=== PATIENT | male | born 1985 | race American Indian/Alaskan Native ===

== ENCOUNTER 2017-01-14 12:43 | Emergency (ER) | payer MEDICAID ==
[2017-01-14 14:39] LABS: Alanine Aminotransferase 32 units/L (7-56); Albumin 3.4 g/dL (3.9-5); Alkaline Phosphatase 110 units/L (35-129); Anion Gap 18 mmol/L; BUN/Creatinine Ratio 16; Blood Urea Nitrogen 13 mg/dL (9-20); Calcium 8.3 mg/dL (8.4-10.2); Carbon Dioxide 22 mmol/L (22-30); Chloride 109.1 mmol/L (98-107); Glucose 93 mg/dL (75-100); Lipase 100 units/L (13-60); Potassium 3.6 mmol/L (3.6-5.0); Sodium 145 mmol/L (137-145); Total Protein 6.9 g/dL (6.3-8.2)
[2017-01-14 15:09] LABS: Hemoglobin 8.1 gm/dl (11.8-15.2); Mean Corpuscular HGB Conc 33 % (32-34); Mean Corpuscular Hemoglobin 28 pg (28-32); Mean Corpuscular Volume 86 fl (84-94); Red Blood Count 2.91 M/mm3 (3.65-5.03); White Blood Count 3.9 K/mm3 (4.5-11.0)
[2017-01-14 15:10] LABS: Platelet Count 223 K/mm3 (140-440)
[2017-01-14 15:30] LABS: Bacteria,Urine 1+ /HPF (Negative); Bilirubin,Urine NEG (Negative); Blood,Urine NEG (Negative); Ketones,Urine NEG (Negative); Leukocyte Esterase,Urine NEG (Negative); Mucus,Urine FEW /HPF; Nitrite,Urine NEG (Negative); Protein,Urine <15 mg/dL mg/dL (Negative)
[2017-01-14 17:46] LABS: Blastocytes % (Manual) 0 %; Eosinophils % (Manual) 0 % (0.0-4.3)
[2017-01-14 17:47] LABS: Anisocytosis 1+; Diff Status Complete; Platelet Estimate Consistent w Auto
[2017-01-14 21:39] VITALS: BP 121/83
--- NOTE | 2017-01-14 21:39 | Emergency Department Report ---
ED General Adult HPI - General Chief complaint: Weakness Stated complaint: HEMOGLOBIN LOW, ABNORMAL LABS Time Seen by Provider: 01/14/17 21:25 Source: patient Mode of arrival: Ambulatory Limitations: No Limitations - History of Present Illness Initial comments: She has a 31-year-old male past medical history of HIV who presents with weakness and low hemoglobin. Patient was recently admitted to the hospital for altered mental status and treat for cryptococcal meningitis. He was discharged from the hospital and was told to follow up with an infectious disease doctor. Patient recently got his labs done today at an outpatient facility. They noted that he had a hemoglobin of 8.1 and told him to go to the emergency department for evaluation. Patient just states that he has felt weak and fatigued. This is the same the weakness he is felt since he left the hospital. He denies having any new symptoms such as headache neck pain fever or chills or any diarrhea. Patient is alert and oriented 4. He states that he is hungry and he wants to eat. Patient states that he is having some slight abdominal pain as generalized as 3 out of 10 as an achy type pain and its intermittent nothing makes it better or worse. Severity scale (0 -10): 0 - Related Data Previous Rx's Medication Instructions Recorded Last Taken Type Famotidine [Pepcid] 20 mg PO BID #60 tablet 12/25/16 Unknown Rx Fluconazole [Diflucan TAB] 400 mg PO QDAY 60 Days tablet 12/25/16 Unknown Rx Lactobacillus Rhamnosus GG 1 each PO QDAY #14 cap 12/25/16 Unknown Rx [Culturelle] Promethazine [Phenergan TAB] 25 mg PO Q6HR PRN #30 tab 12/25/16 Unknown Rx diphenhydrAMINE [Benadryl CAP] 25 mg PO Q6H PRN #30 capsule 12/25/16 Unknown Rx Allergies Allergy/AdvReac Type Severity Reaction Status Date / Time No Known Allergies Allergy Unverified 12/12/16 10:09 ED Review of Systems ROS: Stated complaint: HEMOGLOBIN LOW, ABNORMAL LABS Other details as noted in HPI Constitutional: weakness Eyes: denies: eye pain, eye discharge, vision change ENT: denies: ear pain, throat pain Respiratory: denies: cough, shortness of breath, wheezing Cardiovascular: denies: chest pain, palpitations Endocrine: no symptoms reported Gastrointestinal: abdominal pain. denies: nausea, diarrhea Genitourinary: denies: urgency, dysuria Musculoskeletal: denies: back pain, joint swelling, arthralgia Skin: denies: rash, lesions Neurological: denies: headache, weakness, paresthesias Psychiatric: denies: anxiety, depression Hematological/Lymphatic: denies: easy bleeding, easy bruising ED Past Medical Hx - Past Medical History Previous Medical History?: Yes Hx HIV: Yes (dx with Aids 12/2016) - Surgical History Past Surgical History?: No - Social History Smoking Status: Never Smoker - Medications Home Medications: Home Medications Medication Instructions Recorded Confirmed Last Taken Type Famotidine [Pepcid] 20 mg PO BID #60 tablet 12/25/16 01/14/17 Unknown Rx Fluconazole [Diflucan TAB] 400 mg PO QDAY 60 Days tablet 12/25/16 01/14/17 Unknown Rx Lactobacillus Rhamnosus GG 1 each PO QDAY #14 cap 12/25/16 01/14/17 Unknown Rx [Culturelle] Promethazine [Phenergan TAB] 25 mg PO Q6HR PRN #30 tab 12/25/16 01/14/17 Unknown Rx diphenhydrAMINE [Benadryl CAP] 25 mg PO Q6H PRN #30 capsule 12/25/16 01/14/17 Unknown Rx ED Physical Exam - General Limitations: No Limitations General appearance: alert, in no apparent distress - Head Head exam: Present: atraumatic, normocephalic - Eye Eye exam: Present: normal appearance - ENT ENT exam: Present: mucous membranes moist - Neck Neck exam: Present: normal inspection - Respiratory Respiratory exam: Present: normal lung sounds bilaterally. Absent: respiratory distress - Cardiovascular Cardiovascular Exam: Present: regular rate, normal rhythm. Absent: systolic murmur, diastolic murmur, rubs, gallop - GI/Abdominal GI/Abdominal exam: Present: soft, normal bowel sounds - Rectal Rectal exam: Present: deferred - Extremities Exam Extremities exam: Present: normal inspection - Back Exam Back exam: Present: normal inspection - Neurological Exam Neurological exam: Present: alert, oriented X3 - Psychiatric Psychiatric exam: Present: normal affect, normal mood - Skin Skin exam: Present: warm, dry, intact, normal color. Absent: rash ED Course Vital Signs 01/14/17 01/14/17 13:47 21:38 Temperature 98.7 F 97.6 F Pulse Rate 104 H 89 Respiratory 18 18 Rate Blood Pressure 109/80 Blood Pressure 121/83 [Right] O2 Sat by Pulse 100 98 Oximetry ED Medical Decision Making - Lab Data Result diagrams: 01/14/17 14:06 01/14/17 14:06 Lab Results 01/14/17 01/14/17 01/14/17 Range/Units 14:06 14:06 14:47 WBC 3.9 L (4.5-11.0) K/mm3 RBC 2.91 L (3.65-5.03) M/mm3 Hgb 8.1 L (11.8-15.2) gm/dl Hct 25.0 L (35.5-45.6) % MCV 86 (84-94) fl MCH 28 (28-32) pg MCHC 33 (32-34) % RDW 21.0 H (13.2-15.2) % Plt Count 223 (140-440) K/mm3 Add Manual Diff Complete Total Counted 100 Seg Neuts % (Manual) 67.0 (40.0-70.0) % Band Neutrophils % 0 % Lymphocytes % (Manual) 24.0 (13.4-35.0) % Reactive Lymphs % (Man) 0 % Monocytes % (Manual) 8.0 H (0.0-7.3) % Eosinophils % (Manual) 0 (0.0-4.3) % Basophils % (Manual) 1.0 (0.0-1.8) % Metamyelocytes % 0 % Myelocytes % 0 % Promyelocytes % 0 % Blast Cells % 0 % Nucleated RBC % Not Reportable Seg Neutrophils # Man 2.6 (1.8-7.7) K/mm3 Band Neutrophils # 0.0 K/mm3 Lymphocytes # (Manual) 0.9 L (1.2-5.4) K/mm3 Abs React Lymphs (Man) 0.0 K/mm3 Monocytes # (Manual) 0.3 (0.0-0.8) K/mm3 Eosinophils # (Manual) 0.0 (0.0-0.4) K/mm3 Basophils # (Manual) 0.0 (0.0-0.1) K/mm3 Metamyelocytes # 0.0 K/mm3 Myelocytes # 0.0 K/mm3 Promyelocytes # 0.0 K/mm3 Blast Cells # 0.0 K/mm3 WBC Morphology Not Reportable Hypersegmented Neuts Not Reportable Hyposegmented Neuts Not Reportable Hypogranular Neuts Not Reportable Smudge Cells Not Reportable Toxic Granulation Not Reportable Toxic Vacuolation Not Reportable Dohle Bodies Not Reportable Pelger-Huet Anomaly Not Reportable Simon Rods Not Reportable Platelet Estimate Consistent w auto Clumped Platelets Not Reportable Plt Clumps, EDTA Not Reportable Large Platelets Not Reportable Giant Platelets Not Reportable Platelet Satelliting Not Reportable Plt Morphology Comment Not Reportable RBC Morphology Not Reportable Dimorphic RBCs Not Reportable Polychromasia Not Reportable Hypochromasia Not Reportable Poikilocytosis Not Reportable Anisocytosis 1+ Microcytosis Not Reportable Macrocytosis Not Reportable Spherocytes Not Reportable Pappenheimer Bodies Not Reportable Sickle Cells Not Reportable Target Cells Not Reportable Tear Drop Cells Not Reportable Ovalocytes Not Reportable Helmet Cells Not Reportable Hadley-Rillito Bodies Not Reportable Beecher Rings Not Reportable Marika Cells Not Reportable Bite Cells Not Reportable Crenated Cell Not Reportable Elliptocytes Not Reportable Acanthocytes (Spur) Not Reportable Rouleaux Not Reportable Hemoglobin C Crystals Not Reportable Schistocytes Not Reportable Malaria parasites Not Reportable Aakash Bodies Not Reportable Hem Pathologist Commnt No Sodium 145 (137-145) mmol/L Potassium 3.6 (3.6-5.0) mmol/L Chloride 109.1 H (98-107) mmol/L Carbon Dioxide 22 (22-30) mmol/L Anion Gap 18 mmol/L BUN 13 (9-20) mg/dL Creatinine 0.8 (0.8-1.5) mg/dL Estimated GFR > 60 ml/min BUN/Creatinine Ratio 16 % Glucose 93 (75-100) mg/dL Calcium 8.3 L (8.4-10.2) mg/dL Total Bilirubin 0.30 (0.1-1.2) mg/dL AST 28 (5-40) units/L ALT 32 (7-56) units/L Alkaline Phosphatase 110 (35-129) units/L Total Protein 6.9 (6.3-8.2) g/dL Albumin 3.4 L (3.9-5) g/dL Albumin/Globulin Ratio 1.0 % Lipase 100 H (13-60) units/L Urine Color Yellow (Yellow) Urine Turbidity Clear (Clear) Urine pH 6.0 (5.0-7.0) Ur Specific [place] 1.020 (1.003-1.030) Urine Protein <15 mg/dl (Negative) mg/dL Urine Glucose (UA) Neg (Negative) mg/dL Urine Ketones Neg (Negative) mg/dL Urine Blood Neg (Negative) Urine Nitrite Neg (Negative) Urine Bilirubin Neg (Negative) Urine Urobilinogen 4.0 (<2.0) mg/dL Ur Leukocyte Esterase Neg (Negative) Urine WBC (Auto) 1.0 (0.0-6.0) /HPF Urine RBC (Auto) 1.0 (0.0-6.0) /HPF U Epithel Cells (Auto) 1.0 (0-13.0) /HPF Urine Bacteria (Auto) 1+ (Negative) /HPF Urine Mucus Few /HPF - Medical Decision Making Chief Medical diagnosis: 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 He had anemia in his stay in the hospital for this ago. Patient' s anemia is most likely due to his HIV infection. Patient will need a follow- up with infectious disease doctor. Patient also had an elevated lipase. He has mild abdominal pain and is hungry. I will tell patient to follow up with his primary care doctor and to eat soft/liquid foods. Skull is final patient he agrees with plan additional verbal disccharge instructions were given. He will not need any iron pills as he doesn't have any microcytic anemia Critical care attestation.: If time is entered above; I have spent that time in minutes in the direct care of this critically ill patient, excluding procedure time. ED Disposition Clinical Impression: HIV (human immunodeficiency virus infection), Weakness Anemia Qualifiers: Anemia type: unspecified type Qualified Code(s): D64.9 - Anemia, unspecified Pancreatitis Qualifiers: Chronicity: acute Pancreatitis type: unspecified pancreatitis type Disposition: DC- TO HOME OR SELFCARE Is pt being admited?: No Does the pt Need Aspirin: No Condition: Stable Instructions: Anemia (ED), Pancreatitis (ED) Referrals: KEVIN ALFORD MD [Staff Physician] - 3-5 Days
== END 2017-01-14 23:20 | disposition home or self-care (01) ==
LOC: ED 12:43
DX: D64.9 Anemia, unspecified (principal); K85.90 Acute pancreatitis without necrosis or infection, unspecified; R53.1 Weakness; Z21 Asymptomatic human immunodeficiency virus [HIV] infection status
CPT/HCPCS: 36415; 80053; 81001; 83690; 85007; 85025; 99283

== ENCOUNTER 2017-01-19 13:58 | Inpatient (IN) | payer MEDICAID ==
[2017-01-19] MEDS ORDERED: TYLENOL ONE (16:05)
[2017-01-19] MEDS ORDERED: NACL 0.9% 500 ML 500 ML IV ONE (16:09)
[2017-01-19 16:41] LABS: Basophils % (Auto) 0.3 % (0.0-1.8); Eosinophils % (Auto) 2.3 % (0.0-4.3); Hematocrit 26.7 % (35.5-45.6); Hemoglobin 8.8 gm/dl (11.8-15.2); Mean Corpuscular HGB Conc 33 % (32-34); Mean Corpuscular Hemoglobin 28 pg (28-32); Mean Corpuscular Volume 85 fl (84-94); Platelet Count 226 K/mm3 (140-440); Red Blood Count 3.15 M/mm3 (3.65-5.03); White Blood Count 5.5 K/mm3 (4.5-11.0)
[2017-01-19 16:42] LABS: Red Cell Distribution Width 20.1 % (13.2-15.2)
--- NOTE | 2017-01-19 16:50 | Emergency Department Report ---
Chief Complaint: Fever Stated Complaint: WEAKNESS,RASHNESS Time Seen by Provider: 01/19/17 16:47 - HPI History of Present Illness: Patient with H/O of recently being diagnosed with AIDS presents to ED today with c/o chest congestion, weakness, worsening rash and fever; admits he's taking his ABX and diflucan - ROS Review of Systems: Negative except for those stated in HPI - Exam Vital Signs: Vital Signs 01/19/17 16:05 Temperature 102.0 F H Pulse Rate 115 H Respiratory 18 Rate Blood Pressure 112/69 O2 Sat by Pulse 100 Oximetry Physical Exam: NAD Maculopapular rash on entire body CTAB MSE screening note: Focused history and physical exam performed. Due to findings the following was ordered: Sepsis protocol order Patient to be seen by provider in Main ED ED Medical Decision Making - Lab Data Result diagrams: 01/19/17 16:22 ED Disposition for MSE Condition: Stable Referrals: PRIMARY CARE [Primary Care Provider] - 3-5 Days
[2017-01-19 16:59] LABS: Alanine Aminotransferase 24 units/L (7-56); Albumin 3.5 g/dL (3.9-5); Alkaline Phosphatase 122 units/L (35-129); Anion Gap 21 mmol/L; BUN/Creatinine Ratio 11; Blood Urea Nitrogen 11 mg/dL (9-20); Calcium 7.8 mg/dL (8.4-10.2); Carbon Dioxide 21 mmol/L (22-30); Chloride 96.8 mmol/L (98-107); Glucose 117 mg/dL (75-100); Potassium 3.7 mmol/L (3.6-5.0); Sodium 135 mmol/L (137-145); Total Protein 7.1 g/dL (6.3-8.2)
[2017-01-19 17:13] LABS: INR 1.01 (0.87-1.13)
[2017-01-19] MEDS ORDERED: NACL 0.9% 1000 ML 1,000 ML IV ONE (20:25)
--- NOTE | 2017-01-19 20:40 | Emergency Department Report ---
ED General Adult HPI - General Chief complaint: Fever Stated complaint: WEAKNESS,RASHNESS Time Seen by Provider: 01/19/17 16:47 Source: patient Mode of arrival: Wheelchair Limitations: No Limitations - History of Present Illness Initial comments: Patient is 31 years old male recently diagnosed with HIV/AIDS. 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 Patient stated that since yesterday he started having a fever and generalized rash. Patient denied any cough or chest pain. He denied nausea or vomiting. No urinary symptoms. Patient denied any new medication. He stated that he is not on any antiviral medication yet. Denied any headache, confusion numbness or tingling sensation. No bowel or bladder incontinence. -: Gradual, days(s) - Related Data Home Medications Medication Instructions Recorded Confirmed Last Taken Olanzapine [ZyPREXA] 20 mg PO QDAY 11/01/16 01/19/17 01/19/17 Previous Rx's Medication Instructions Recorded Last Taken Type Famotidine [Pepcid] 20 mg PO BID #60 tablet 12/25/16 01/19/17 Rx Fluconazole [Diflucan TAB] 400 mg PO QDAY 60 Days tablet 12/25/16 01/19/17 Rx Promethazine [Phenergan TAB] 25 mg PO Q6HR PRN #30 tab 12/25/16 01/19/17 Rx Allergies Allergy/AdvReac Type Severity Reaction Status Date / Time No Known Allergies Allergy Unverified 12/12/16 10:09 ED Review of Systems ROS: Stated complaint: WEAKNESS,RASHNESS Other details as noted in HPI Comment: All other systems reviewed and negative Constitutional: chills, fever Respiratory: denies: cough, orthopnea, shortness of breath, SOB with exertion, SOB at rest Cardiovascular: palpitations. 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 - Social History Smoking Status: Never Smoker Substance Use Type: None - Medications Home Medications: Home Medications Medication Instructions Recorded Confirmed Last Taken Type Olanzapine [ZyPREXA] 20 mg PO QDAY 11/01/16 01/19/17 01/19/17 History Famotidine [Pepcid] 20 mg PO BID #60 tablet 12/25/16 01/19/17 01/19/17 Rx Fluconazole [Diflucan TAB] 400 mg PO QDAY 60 Days tablet 12/25/16 01/19/1706/02 Rx Promethazine [Phenergan TAB] 25 mg PO Q6HR PRN #30 tab 12/25/16 01/19/17 Rx ED Physical Exam - General Limitations: No Limitations General appearance: alert, in no apparent distress - Head Head exam: Present: atraumatic, normocephalic - Eye Eye exam: Present: normal appearance, PERRL - ENT ENT exam: Present: normal exam, mucous membranes dry - Neck Neck exam: Present: normal inspection, full ROM. Absent: tenderness, meningismus, lymphadenopathy, thyromegaly - Respiratory Respiratory exam: Present: normal lung sounds bilaterally. Absent: wheezes, rales, rhonchi, stridor, accessory muscle use, decreased breath sounds, prolonged expiratory - Cardiovascular Cardiovascular Exam: Present: tachycardia - GI/Abdominal GI/Abdominal exam: Present: soft, normal bowel sounds. Absent: distended, tenderness, guarding, rebound, rigid, organomegaly, mass, bruit, pulsatile mass , hernia - Extremities Exam Extremities exam: Present: normal inspection, full ROM, normal capillary refill. Absent: calf tenderness - Back Exam Back exam: Present: normal inspection, rash noted. Absent: full ROM, CVA tenderness (R), CVA tenderness (L), muscle spasm, paraspinal tenderness, vertebral tenderness - Neurological Exam Neurological exam: Present: alert, oriented X3, CN II-XII intact. Absent: motor sensory deficit - Psychiatric Psychiatric exam: Present: normal affect - Skin Skin exam: Present: warm, dry, rash, erythema ED Course Vital Signs 01/19/17 01/19/17 01/19/17 16:05 19:49 20:01 Temperature 102.0 F H Pulse Rate 115 H 106 H Respiratory 18 18 18 Rate Blood Pressure 112/69 146/79 O2 Sat by Pulse 100 Oximetry 01/19/17 01/19/17 20:12 22:16 Temperature 99.6 F Pulse Rate 105 H Respiratory 20 Rate Blood Pressure O2 Sat by Pulse 100 Oximetry - Central Line Placement Right Femoral Consent Obtained: verbal consent, emergent situation Time Out Performed: Yes Patient Placed on Monitor/Pulse Ox: Yes MD Prep: mask, gown, gloves Central Line Prep: Povidone-Iodine 1%, Chlorhexidine scrub, sterile drapes applied Local Anesthesia Used: Lidocaine 2% Amount of Anesthesia Used (mls): 5 Ultrasound Used for Placement: No Central Line Lumen Inserted: triple Bloods Obtained for Lab: Yes Central Line Position: good blood return, all ports aspirated, flus, sutured in place with 2-0 Dressing Applied: Tegaderm, sterile gauze/tape Patient Tolerated Procedure: well, no complications Complications: none ED Medical Decision Making - Lab Data Result diagrams: 01/19/17 16:22 01/19/17 16:22 Critical Care Time: Yes Critical care time in (mins) excluding proc time.: 35 Critical care attestation.: If time is entered above; I have spent that time in minutes in the direct care of this critically ill patient, excluding procedure time. ED Disposition Clinical Impression: Sepsis, Fever, Dehydration Disposition: DC-09 OP ADMIT IP TO THIS HOSP Is pt being admited?: No Condition: Stable Referrals: PRIMARY CARE, [Primary Care Provider] - 3-5 Days
[2017-01-19] MEDS ORDERED: ZOSYN/NS 4.5GM/100ML 4.5 GM/100 ML VIAL IV ONE (21:00)
[2017-01-19] MEDS ORDERED: NACL 0.9% 500 ML 500 ML ONE (21:01)
[2017-01-19] MEDS ORDERED: TYLENOL PO ONE (21:50)
[2017-01-19 22:27] LABS: Bilirubin,Urine NEG (Negative); Blood,Urine NEG (Negative); Ketones,Urine NEG (Negative); Leukocyte Esterase,Urine TR (Negative); Nitrite,Urine NEG (Negative); Protein,Urine <15 mg/dL mg/dL (Negative)
[2017-01-19] MEDS ORDERED: MORPHINE ONE (23:04)
[2017-01-19] MEDS ORDERED: ZOFRAN ONE (23:04)
--- NOTE | 2017-01-19 23:55 | History and Physical Report ---
History of Present Illness Date of examination: 01/19/17 History of present illness: 31-year-old man was recently diagnosed with AIDS, cryptococcal meningitis, depression comes to emergency room because he developed a rash over his entire body which started today. Stated that his feet are swollen and painful, also his hands, he has difficulty ambulating and uses in his hands. Admits to fever and he started using Iirish spray over his entire body one week ago. He continues to have diarrhea but it is improving Review Of Systems: Constitutional: no weight loss Ears, eyes, nose, mouth and throat: no nasal congestion, no nasal discharge, no sinus pressure, blurry vision, diplopia Neck: No neck pain or rigidity. Cardiovascular: no chest pain, orthopnea, palpitations Respiratory: No shortness of breath, cough Gastrointestinal: no abdominal pain, hematochezia Genitourinary : no dysuria, frequency , hematuria Musculoskeletal: no muscle ache Integumentary: no pruritis Neurological: no parathesias, focal weakness Endocrine: no cold or heat intolerance, no polyuria or polydipsia Hematologic/Lymphatic: no easy bruising, no easy bleeding, no gland swelling Allergic/Immunologic: no urticaria, no angioedema. PAST MEDICAL HISTORY:AIDS, cryptococcal meningitis, depression PAST SURGICAL HISTORY:none FAMILY HISTORY:PATIENT IS ADOPTED SOCIAL HISTORY: Denies alcohol, tobacco, drugs Medications and Allergies Allergies Allergy/AdvReac Type Severity Reaction Status Date / Time fluconazole Allergy Severe Rash Verified 01/22/17 11:47 Home Medications Medication Instructions Recorded Confirmed Last Taken Type Atovaquone [Mepron] 1,500 mg PO QDAY #1 mo 01/26/17 Unknown Rx Azithromycin [Zithromax TAB] 1,200 mg PO QWEEK #1 mo 01/26/17 Unknown Rx Famotidine [Pepcid] 20 mg PO BID #60 tablet 01/26/17 Unknown Rx OLANzapine [Zyprexa] 20 mg PO QDAY #30 tablet 01/26/17 Unknown Rx Promethazine [Phenergan TAB] 25 mg PO Q6HR PRN #30 tab 01/26/17 Unknown Rx Voriconazole [Vfend] 100 mg PO Q12H #30 day 01/26/17 Unknown Rx diphenhydrAMINE [Benadryl CAP] 25 mg PO Q6H PRN #15 capsule 12/11/17 Unknown Rx methylPREDNISolone [Medrol Dose 1 dose PO DAILY #1 pack 01/26/17 Unknown Rx Efraín] Exam - Physical Exam Narrative exam: Gen. appearance: Patient lying in bed in no acute distress HEENT: Normocephalic/atraumatic, pupils equal round reactive to light, extra alkaline movement intact, no scleral icterus, no JVD or thyromegaly or nodule, neck is supple, mucous membrane moist, no erythema or exudate Heart: S1-S2, regular rate and rhythm Lungs: Clear to auscultation bilateral breathing comfortable Abdomen: Positive bowel sounds, nontender, nondistended, no organomegaly Extremities: No edema, cyanosis, clubbing Neuro:: Oriented 3 , cranial nerves II-12 intact, speech, motor intact Skin: Diffuse erythematous pustular rash from face down to toes, feet and hands are swollen, tender to touch nodules, warm dry - Constitutional Vitals: Temp Pulse Resp BP Pulse Ox 99.6 F 105 H 20 146/79 100 01/19/17 20:12 01/19/17 20:12 01/19/17 22:16 01/19/17 20:01 01/19/17 22:16 Results - Labs CBC & Chem 7: 01/25/17 05:53 01/25/17 05:53 Labs: Abnormal lab results 01/19/17 01/19/17 01/19/17 Range/Units 16:22 16:22 16:22 RBC 3.15 L (3.65-5.03) M/mm3 Hgb 8.8 L (11.8-15.2) gm/dl Hct 26.7 L (35.5-45.6) % RDW 20.1 H (13.2-15.2) % VBG pH 7.536 H (7.320-7.420) Sodium 135 L (137-145) mmol/L Chloride 96.8 L (98-107) mmol/L Carbon Dioxide 21 L (22-30) mmol/L Glucose 117 H (75-100) mg/dL Calcium 7.8 L (8.4-10.2) mg/dL Albumin 3.5 L (3.9-5) g/dL - Imaging and Cardiology Chest x-ray: image reviewed Assessment and Plan Assessment Diffuse rash, allergic reaction, ?yen viv AIDS History of Cryptococcal meningitis Depression Plan Admit to medicine Start high-dose IV steroids, Vanco, ceftaz, IV fluids, follow cultures Consult infectious disease, case discussed with Dr. Gatica DVT prophylaxis
[2017-01-20] MEDS ORDERED: MORPHINE IV ONE (00:21)
[2017-01-20] MEDS ORDERED: ZOFRAN IV ONE (00:21)
[2017-01-20] MEDS ORDERED: NACL 0.9% 1000 ML 1,000 ML ONE (01:12)
[2017-01-20] MEDS: NACL 0.9% 1000 ML 1,000 ML IV SCH ×2 (01:23→16:29)
[2017-01-20] MEDS ORDERED: PHENERGAN PO PRN (01:33)
[2017-01-20] MEDS ORDERED: NACL 0.9% 1000 ML 1,000 ML IV SCH (02:00)
[2017-01-20] MEDS ORDERED: VANCOMYCIN/NS 1 GM/250 ML 1 GM/250 ML BAG IV SCH (02:00)
[2017-01-20] MEDS ORDERED: MAXIPIME/NS 1 GM/100 ML 1 GM/100 ML BAG IV SCH (02:00)
[2017-01-20] MEDS ORDERED: VANCOMYCIN 1,750 MG in NACL 0.9% 500 ML 500 ML IV ONE (02:30)
[2017-01-20] MEDS: MAXIPIME 1 GM in NACL 0.9% 20 ML IV SCH ×3 (02:44→18:56)
--- NOTE | 2017-01-20 08:01 | XRay Report ---
AP CHEST: History: Cough and fever. AP view of the chest demonstrates a normal mediastinal and cardiac contour with clear lungs and normal bony and soft tissue structures. IMPRESSION: Normal AP chest.
--- NOTE | 2017-01-20 09:53 | Progress Note ---
Assessment and Plan Assessment and plan: Patient is 31 years old male recently diagnosed with HIV/AIDS. 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 Patient stated that since yesterday he started having a fever and generalized rash. Patient denied any cough or chest pain. He denied nausea or vomiting. No urinary symptoms. Patient denied any new medication. He stated that he is not on any antiviral medication yet. Denied any headache, confusion numbness or tingling sensation. No bowel or bladder incontinence Assessment and Plan Diffuse rash, allergic reaction Start high-dose IV steroids, Vanco, ceftaz, IV fluids, follow cultures AIDS ID consulted Consult infectious disease, case discussed with Dr. Gatica History of Cryptococcal meningitis ID consulted Depression Continue Home meds DVT prophylaxis On Lovenox History Interval history: Patient is awake and alert in bed. Denies SOB, CP, N/V Hospitalist Physical - Constitutional Vitals: Temp Pulse Resp BP Pulse Ox 98.5 F 99 H 16 112/64 97 01/20/17 08:02 01/20/17 08:02 01/20/17 08:02 01/20/17 08:02 01/20/17 08:02 General appearance: Present: no acute distress - EENT Eyes: Present: PERRL, EOM intact ENT: hearing intact, clear oral mucosa, dentition normal - Neck Neck: Present: supple, normal ROM - Respiratory Respiratory effort: normal Respiratory: bilateral: CTA - Cardiovascular Rhythm: regular Heart Sounds: Present: S1 & S2 - Extremities Extremities: no ischemia Extremity abnormal: edema Peripheral Pulses: within normal limits - Abdominal General gastrointestinal: soft, non-tender - Integumentary Integumentary: Present: rash (diffuse) - Psychiatric Psychiatric: appropriate mood/affect, intact judgment & insight, cooperative - Neurologic Neurologic: CNII-XII intact, moves all extremities - Allied Health Allied health notes reviewed: nursing Results - Labs CBC & Chem 7: 01/19/17 16:22 01/19/17 16:22 Labs: Laboratory Last Values WBC 5.5 K/mm3 (4.5-11.0) 01/19/17 16:22 RBC 3.15 M/mm3 (3.65-5.03) L 01/19/17 16:22 Hgb 8.8 gm/dl (11.8-15.2) L 01/19/17 16:22 Hct 26.7 % (35.5-45.6) L 01/19/17 16:22 MCV 85 fl (84-94) 01/19/17 16:22 MCH 28 pg (28-32) 01/19/17 16:22 MCHC 33 % (32-34) 01/19/17 16:22 RDW 20.1 % (13.2-15.2) H 01/19/17 16:22 Plt Count 226 K/mm3 (140-440) 01/19/17 16:22 Lymph % (Auto) 24.4 % (13.4-35.0) 01/19/17 16:22 [place] % (Auto) 3.5 % (0.0-7.3) 01/19/17 16:22 Eos % (Auto) 2.3 % (0.0-4.3) 01/19/17 16:22 Baso % (Auto) 0.3 % (0.0-1.8) 01/19/17 16:22 Lymph # 1.3 K/mm3 (1.2-5.4) 01/19/17 16:22 [place] # 0.2 K/mm3 (0.0-0.8) 01/19/17 16:22 Eos # 0.1 K/mm3 (0.0-0.4) 01/19/17 16:22 Baso # 0.0 K/mm3 (0.0-0.1) 01/19/17 16:22 Seg Neutrophils % 69.5 % (40.0-70.0) 01/19/17 16:22 Seg Neutrophils # 3.8 K/mm3 (1.8-7.7) 01/19/17 16:22 PT 13.8 Sec. (12.2-14.9) 01/19/17 16:22 INR 1.01 (0.87-1.13) 01/19/17 16:22 VBG pH 7.536 (7.320-7.420) H 01/19/17 16:22 Sodium 135 mmol/L (137-145) L 01/19/17 16:22 Potassium 3.7 mmol/L (3.6-5.0) 01/19/17 16:22 Chloride 96.8 mmol/L (98-107) L 01/19/17 16:22 Carbon Dioxide 21 mmol/L (22-30) L 01/19/17 16:22 Anion Gap 21 mmol/L 01/19/17 16:22 BUN 11 mg/dL (9-20) 01/19/17 16:22 Creatinine 1.0 mg/dL (0.8-1.5) 01/19/17 16:22 Estimated GFR > 60 ml/min 01/19/17 16:22 BUN/Creatinine Ratio 11 % 01/19/17 16:22 Glucose 117 mg/dL (75-100) H 01/19/17 16:22 Lactic Acid 1.40 mmol/L (0.7-2.0) 01/19/17 18:28 Calcium 7.8 mg/dL (8.4-10.2) L 01/19/17 16:22 Total Bilirubin 0.50 mg/dL (0.1-1.2) 01/19/17 16:22 AST 26 units/L (5-40) 01/19/17 16:22 ALT 24 units/L (7-56) 01/19/17 16:22 Alkaline Phosphatase 122 units/L (35-129) 01/19/17 16:22 Total Protein 7.1 g/dL (6.3-8.2) 01/19/17 16:22 Albumin 3.5 g/dL (3.9-5) L 01/19/17 16:22 Albumin/Globulin Ratio 1.0 % 01/19/17 16:22 Urine Color Yellow (Yellow) 01/19/17 Unknown Urine Turbidity Clear (Clear) 01/19/17 Unknown Urine pH 6.0 (5.0-7.0) 01/19/17 Unknown Ur Specific [place] 1.017 (1.003-1.030) 01/19/17 Unknown Urine Protein <15 mg/dl mg/dL (Negative) 01/19/17 Unknown Urine Glucose (UA) Neg mg/dL (Negative) 01/19/17 Unknown Urine Ketones Neg mg/dL (Negative) 01/19/17 Unknown Urine Blood Neg (Negative) 01/19/17 Unknown Urine Nitrite Neg (Negative) 01/19/17 Unknown Urine Bilirubin Neg (Negative) 01/19/17 Unknown Urine Urobilinogen 2.0 mg/dL (<2.0) 01/19/17 Unknown Ur Leukocyte Esterase Tr (Negative) 01/19/17 Unknown Urine WBC (Auto) 5.0 /HPF (0.0-6.0) 01/19/17 Unknown Urine RBC (Auto) 2.0 /HPF (0.0-6.0) 01/19/17 Unknown U Epithel Cells (Auto) < 1.0 /HPF (0-13.0) 01/19/17 Unknown - Imaging and Cardiology Chest x-ray: report reviewed (Normal)
[2017-01-20] MEDS ORDERED: PERCOCET 5/325 PO PRN (12:14)
[2017-01-20] MEDS: PEPCID PO SCH ×2 (12:59→21:45)
[2017-01-20] MEDS: DIFLUCAN PO SCH (13:00)
[2017-01-20] MEDS: LOVENOX SUB-Q SCH (13:01)
[2017-01-20] MEDS ORDERED: VANCOMYCIN 1,250 MG in NACL 0.9% 250ML 250 ML IV SCH (14:00)
[2017-01-20] MEDS ORDERED: BENADRYL PO PRN (15:52)
[2017-01-20] MEDS ORDERED: VASELINE LIP THERAPY TP PRN (15:52)
[2017-01-21] MEDS: MAXIPIME 1 GM in NACL 0.9% 20 ML IV SCH ×2 (02:18→10:11)
[2017-01-21] MEDS: NACL 0.9% 1000 ML 1,000 ML IV SCH ×3 (02:18→18:06)
--- NOTE | 2017-01-21 09:32 | Progress Note ---
<DONOVAN MORRIS - Last Filed: 01/21/17 14:33> Assessment and Plan Assessment and plan: Patient is 31 years old male recently diagnosed with HIV/AIDS. 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 Patient stated that since yesterday he started having a fever and generalized rash. Patient denied any cough or chest pain. He denied nausea or vomiting. No urinary symptoms. Patient denied any new medication. He stated that he is not on any antiviral medication yet. Denied any headache, confusion numbness or tingling sensation. No bowel or bladder incontinence Assessment and Plan Diffuse rash, allergic reaction Start high-dose IV steroids, Vanco, ceftaz, IV fluids, follow cultures Derm consulted, surgical consult for skin biopsy AIDS ID following - stopped cefepime and fluconazole IV solumedrol, IVF History of Cryptococcal meningitis ID consulted Depression Continue Home meds DVT prophylaxis On Lovenox History Interval history: Patient is awake and alert in bed. Denies SOB, CP, N/V Hospitalist Physical - Constitutional Vitals: Temp Pulse Resp BP Pulse Ox 94.5 F L 65 18 111/78 100 01/21/17 07:49 01/21/17 07:49 01/21/17 07:49 01/21/17 07:49 01/21/17 07:49 General appearance: Present: no acute distress - EENT Eyes: Present: PERRL, EOM intact ENT: hearing intact, ulcerations - Neck Neck: Present: supple, normal ROM - Respiratory Respiratory effort: normal Respiratory: bilateral: CTA - Cardiovascular Rhythm: regular Heart Sounds: Present: S1 & S2 - Extremities Extremities: no ischemia, No edema Peripheral Pulses: within normal limits - Abdominal General gastrointestinal: soft, non-tender, normal bowel sounds - Integumentary Integumentary: Present: warm, dry, rash (macular papular diffuse body rash ) - Psychiatric Psychiatric: appropriate mood/affect, cooperative - Neurologic Neurologic: CNII-XII intact, moves all extremities - Allied Health Allied health notes reviewed: nursing Results - Labs CBC & Chem 7: 01/19/17 16:22 01/19/17 16:22 Labs: Laboratory Last Values WBC 5.5 K/mm3 (4.5-11.0) 01/19/17 16:22 RBC 3.15 M/mm3 (3.65-5.03) L 01/19/17 16:22 Hgb 8.8 gm/dl (11.8-15.2) L 01/19/17 16:22 Hct 26.7 % (35.5-45.6) L 01/19/17 16:22 MCV 85 fl (84-94) 01/19/17 16:22 MCH 28 pg (28-32) 01/19/17 16:22 MCHC 33 % (32-34) 01/19/17 16:22 RDW 20.1 % (13.2-15.2) H 01/19/17 16:22 Plt Count 226 K/mm3 (140-440) 01/19/17 16:22 Lymph % (Auto) 24.4 % (13.4-35.0) 01/19/17 16:22 [place] % (Auto) 3.5 % (0.0-7.3) 01/19/17 16:22 Eos % (Auto) 2.3 % (0.0-4.3) 01/19/17 16:22 Baso % (Auto) 0.3 % (0.0-1.8) 01/19/17 16:22 Lymph # 1.3 K/mm3 (1.2-5.4) 01/19/17 16:22 [place] # 0.2 K/mm3 (0.0-0.8) 01/19/17 16:22 Eos # 0.1 K/mm3 (0.0-0.4) 01/19/17 16:22 Baso # 0.0 K/mm3 (0.0-0.1) 01/19/17 16:22 Seg Neutrophils % 69.5 % (40.0-70.0) 01/19/17 16:22 Seg Neutrophils # 3.8 K/mm3 (1.8-7.7) 01/19/17 16:22 PT 13.8 Sec. (12.2-14.9) 01/19/17 16:22 INR 1.01 (0.87-1.13) 01/19/17 16:22 VBG pH 7.536 (7.320-7.420) H 01/19/17 16:22 Sodium 135 mmol/L (137-145) L 01/19/17 16:22 Potassium 3.7 mmol/L (3.6-5.0) 01/19/17 16:22 Chloride 96.8 mmol/L (98-107) L 01/19/17 16:22 Carbon Dioxide 21 mmol/L (22-30) L 01/19/17 16:22 Anion Gap 21 mmol/L 01/19/17 16:22 BUN 11 mg/dL (9-20) 01/19/17 16:22 Creatinine 1.0 mg/dL (0.8-1.5) 01/19/17 16:22 Estimated GFR > 60 ml/min 01/19/17 16:22 BUN/Creatinine Ratio 11 % 01/19/17 16:22 Glucose 117 mg/dL (75-100) H 01/19/17 16:22 Lactic Acid 1.40 mmol/L (0.7-2.0) 01/19/17 18:28 Calcium 7.8 mg/dL (8.4-10.2) L 01/19/17 16:22 Total Bilirubin 0.50 mg/dL (0.1-1.2) 01/19/17 16:22 AST 26 units/L (5-40) 01/19/17 16:22 ALT 24 units/L (7-56) 01/19/17 16:22 Alkaline Phosphatase 122 units/L (35-129) 01/19/17 16:22 Total Protein 7.1 g/dL (6.3-8.2) 01/19/17 16:22 Albumin 3.5 g/dL (3.9-5) L 01/19/17 16:22 Albumin/Globulin Ratio 1.0 % 01/19/17 16:22 Urine Color Yellow (Yellow) 01/19/17 Unknown Urine Turbidity Clear (Clear) 01/19/17 Unknown Urine pH 6.0 (5.0-7.0) 01/19/17 Unknown Ur Specific [place] 1.017 (1.003-1.030) 01/19/17 Unknown Urine Protein <15 mg/dl mg/dL (Negative) 01/19/17 Unknown Urine Glucose (UA) Neg mg/dL (Negative) 01/19/17 Unknown Urine Ketones Neg mg/dL (Negative) 01/19/17 Unknown Urine Blood Neg (Negative) 01/19/17 Unknown Urine Nitrite Neg (Negative) 01/19/17 Unknown Urine Bilirubin Neg (Negative) 01/19/17 Unknown Urine Urobilinogen 2.0 mg/dL (<2.0) 01/19/17 Unknown Ur Leukocyte Esterase Tr (Negative) 01/19/17 Unknown Urine WBC (Auto) 5.0 /HPF (0.0-6.0) 01/19/17 Unknown Urine RBC (Auto) 2.0 /HPF (0.0-6.0) 01/19/17 Unknown U Epithel Cells (Auto) < 1.0 /HPF (0-13.0) 01/19/17 Unknown <KELSEY ESCALANTEENCE R - Last Filed: 01/22/17 12:00> Assessment and Plan Assessment and plan: I saw and evaluated the patient. I agree with the findings and the plan of care as documented in the Nurse Practitioner's~note, with the following corrections and additions.see my progress note Hospitalist Physical - Constitutional Vitals: Temp Pulse Resp BP Pulse Ox 98.2 F 60 18 122/82 100 01/22/17 09:07 01/22/17 09:07 01/22/17 09:07 01/22/17 09:07 01/22/17 09:07 Results - Labs CBC & Chem 7: 01/19/17 16:22 01/19/17 16:22 Labs: Laboratory Last Values WBC 5.5 K/mm3 (4.5-11.0) 01/19/17 16:22 RBC 3.15 M/mm3 (3.65-5.03) L 01/19/17 16:22 Hgb 8.8 gm/dl (11.8-15.2) L 01/19/17 16:22 Hct 26.7 % (35.5-45.6) L 01/19/17 16:22 MCV 85 fl (84-94) 01/19/17 16:22 MCH 28 pg (28-32) 01/19/17 16:22 MCHC 33 % (32-34) 01/19/17 16:22 RDW 20.1 % (13.2-15.2) H 01/19/17 16:22 Plt Count 226 K/mm3 (140-440) 01/19/17 16:22 Lymph % (Auto) 24.4 % (13.4-35.0) 01/19/17 16:22 [place] % (Auto) 3.5 % (0.0-7.3) 01/19/17 16:22 Eos % (Auto) 2.3 % (0.0-4.3) 01/19/17 16:22 Baso % (Auto) 0.3 % (0.0-1.8) 01/19/17 16:22 Lymph # 1.3 K/mm3 (1.2-5.4) 01/19/17 16:22 [place] # 0.2 K/mm3 (0.0-0.8) 01/19/17 16:22 Eos # 0.1 K/mm3 (0.0-0.4) 01/19/17 16:22 Baso # 0.0 K/mm3 (0.0-0.1) 01/19/17 16:22 Seg Neutrophils % 69.5 % (40.0-70.0) 01/19/17 16:22 Seg Neutrophils # 3.8 K/mm3 (1.8-7.7) 01/19/17 16:22 PT 13.8 Sec. (12.2-14.9) 01/19/17 16:22 INR 1.01 (0.87-1.13) 01/19/17 16:22 VBG pH 7.536 (7.320-7.420) H 01/19/17 16:22 Sodium 135 mmol/L (137-145) L 01/19/17 16:22 Potassium 3.7 mmol/L (3.6-5.0) 01/19/17 16:22 Chloride 96.8 mmol/L (98-107) L 01/19/17 16:22 Carbon Dioxide 21 mmol/L (22-30) L 01/19/17 16:22 Anion Gap 21 mmol/L 01/19/17 16:22 BUN 11 mg/dL (9-20) 01/19/17 16:22 Creatinine 1.0 mg/dL (0.8-1.5) 01/19/17 16:22 Estimated GFR > 60 ml/min 01/19/17 16:22 BUN/Creatinine Ratio 11 % 01/19/17 16:22 Glucose 117 mg/dL (75-100) H 01/19/17 16:22 Lactic Acid 1.40 mmol/L (0.7-2.0) 01/19/17 18:28 Calcium 7.8 mg/dL (8.4-10.2) L 01/19/17 16:22 Total Bilirubin 0.50 mg/dL (0.1-1.2) 01/19/17 16:22 AST 26 units/L (5-40) 01/19/17 16:22 ALT 24 units/L (7-56) 01/19/17 16:22 Alkaline Phosphatase 122 units/L (35-129) 01/19/17 16:22 Total Protein 7.1 g/dL (6.3-8.2) 01/19/17 16:22 Albumin 3.5 g/dL (3.9-5) L 01/19/17 16:22 Albumin/Globulin Ratio 1.0 % 01/19/17 16:22 Urine Color Yellow (Yellow) 01/19/17 Unknown Urine Turbidity Clear (Clear) 01/19/17 Unknown Urine pH 6.0 (5.0-7.0) 01/19/17 Unknown Ur Specific [place] 1.017 (1.003-1.030) 01/19/17 Unknown Urine Protein <15 mg/dl mg/dL (Negative) 01/19/17 Unknown Urine Glucose (UA) Neg mg/dL (Negative) 01/19/17 Unknown Urine Ketones Neg mg/dL (Negative) 01/19/17 Unknown Urine Blood Neg (Negative) 01/19/17 Unknown Urine Nitrite Neg (Negative) 01/19/17 Unknown Urine Bilirubin Neg (Negative) 01/19/17 Unknown Urine Urobilinogen 2.0 mg/dL (<2.0) 01/19/17 Unknown Ur Leukocyte Esterase Tr (Negative) 01/19/17 Unknown Urine WBC (Auto) 5.0 /HPF (0.0-6.0) 01/19/17 Unknown Urine RBC (Auto) 2.0 /HPF (0.0-6.0) 01/19/17 Unknown U Epithel Cells (Auto) < 1.0 /HPF (0-13.0) 01/19/17 Unknown
[2017-01-21] MEDS: DIFLUCAN PO SCH (10:14)
[2017-01-21] MEDS: PEPCID PO SCH ×2 (10:17→22:37)
[2017-01-21] MEDS: LOVENOX SUB-Q SCH (10:18)
--- NOTE | 2017-01-21 12:37 | Consultation ---
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 Reports severe feet pain and feet swellling unable to walk, also his hands, noted oral rash. Noted subjective fever. Admits to fever and he started using I[place] spray over his entire body one week ago. In the emergency room, initial temperature 102, heart rate 1:15, blood pressure 112/64. Initial white count 5.5. Hemoglobin 8.8. Platelets 226. Creatinine 1. Microbiology: Blood cultures: 01/19 ngtd Urine cultures: 01/19 neg Influenza: neg Current Antimicrobials: cefepime fluconazole Previous Antimicrobials: Past History Past Medical History: other (HIV, cryptococcal meningitis and fungemia ) Medications and Allergies Allergies Allergy/AdvReac Type Severity Reaction Status Date / Time No Known Allergies Allergy Unverified 12/12/16 10:09 Home Medications Medication Instructions Recorded Confirmed Last Taken Type Olanzapine [ZyPREXA] 20 mg PO QDAY 11/01/16 01/19/17 01/19/17 History Famotidine [Pepcid] 20 mg PO BID #60 tablet 12/25/16 01/19/17 01/19/17 Rx Fluconazole [Diflucan TAB] 400 mg PO QDAY 60 Days tablet 12/25/16 01/19/1706/02 Rx Promethazine [Phenergan TAB] 25 mg PO Q6HR PRN #30 tab 12/25/16 01/19/17 Rx Active Meds: Active Medications Diphenhydramine HCl (Benadryl) 25 mg PO Q6H PRN PRN Reason: Itching Enoxaparin Sodium (Lovenox) 40 mg SUB-Q QDAY [facility] Last Admin: 01/21/17 10:18 Dose: 40 mg Famotidine (Pepcid) 20 mg PO BID [facility] Last Admin: 01/21/17 10:17 Dose: 20 mg Fluconazole (Diflucan) 400 mg PO QDAY [facility] Last Admin: 01/21/17 10:14 Dose: 400 mg Hydrophilic Ointment (Vaseline Lip Therapy) 1 applic TP DIRECT PRN PRN Reason: Dry Lips Last Admin: 01/21/17 10:19 Dose: 1 applic Sodium Chloride (Nacl 0.9% 1000 Ml) 1,000 mls @ 150 mls/hr IV DIRECT KELLEE Last Admin: 01/21/17 10:10 Dose: 150 mls/hr Cefepime HCl 1 gm/ Sodium (Chloride) 20 mls @ 2 mls/min IV Q8H KELLEE Last Admin: 01/21/17 10:11 Dose: 2 mls/min Methylprednisolone Sodium Succinate (Solu-Medrol) 40 mg IV DAILY KELLEE Last Admin: 01/21/17 10:18 Dose: 40 mg Olanzapine (Zyprexa) 20 mg PO QDAY [facility] Last Admin: 01/21/17 10:17 Dose: 20 mg Oxycodone/Acetaminophen (Percocet 5/325) 1 tab PO Q6H PRN PRN Reason: Pain, Moderate (4-6) Promethazine HCl (Phenergan) 25 mg PO Q6H PRN PRN Reason: Nausea or vomiting Review of Systems Constitutional: anorexia (as per HIV) Physical Examination - Physical Exam Narrative exam: General appearance: Alert in NAD, conversant Eyes: anicteric sclerae, moist conjunctivae; no lid-lag; PERRLA HENT: Atraumatic; oropharynx +oral mucosa with ulcers Neck: Trachea midline; supple, no thyromegaly or lymphadenopathy Lungs: CTA CV: RRR, no murmurs Abdomen: Soft, non-tender; no masses or hepatosplenomegaly Extremities: No peripheral edema or extremity lymphadenopathy Skin: +extensive maked nodular erythematous rash over entire body, face, palms, soles, mouth Psych: Appropriate affect, alert and oriented to person, place and time. Neuro: alert and oriented x 3. Moving all extermities Lines: No CVL / PICC - Constitutional Vitals: Vital Signs Temp Pulse Resp BP Pulse Ox 94.5 F L 65 18 111/78 100 01/21/17 07:49 01/21/17 07:49 01/21/17 07:49 01/21/17 07:49 01/21/17 07:49 Temperature -Last 24 Hours Temperature 94.5 F Temperature 99.3 F Temperature 98.3 F Results - Labs CBC & Chem 7: 01/19/17 16:22 01/19/17 16:22 Assessment and Plan Assessment: 1) SIRS: Present on admission, manifested by fever, tachycardia, transient hypotension. Etiology most likely extensive rash. 2) Extensive papular rash affecting entire body, palms, soles, mouth: ? 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 VDRL negative. Cryptococcus CSF antigen was positive at 1:2048. -Blood cx positive Crypto -Repeat LP -opening pressure normal 4) HIV infection / AIDS -PJ=377,474 -CD4=64 -HIV-Genotype - pansensitive Plan: -STOP fluconazole -stop cefepime -IVF -IV solumedrol -Surgical consult Dr Mack for skin biopsy -Derm consult -avoid unnecessary meds -check RPR -contact / droplet isolation for now Thank you Dr Ann for your consultation, will follow up with you. Yudelka Gillis MD Infectious Diseases Specialist [facility] M [phone] O [phone]
--- NOTE | 2017-01-21 14:43 | Progress Note ---
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 -Disseminated rash, either drug eruption vs viral exanthem: Discussed with Dr. 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 Follow-up on current diagnosis/rash which is still present. Overnight uneventful. Patient denies any chest pain, shortness breath, nausea/vomiting or severe headaches. Imaging, nursing note, chart, labs and old chart reviewed. Discussed with patient. Hospitalist Physical - Physical exam Narrative exam: GEN: Ill appearing, NAD, AWAKE, ALERT, ORIENTATED 3 HEENT: NCAT, EOMI, PERRL, OP with jairo viv type of appearance on lips NECK: supple, no adenopathy, no thyromegaly, no JVD CVS/HEART: RRR, NORMAL S1S2, NO JVD, pulses present bilaterally CHEST/LUNGS: CTA B, Symmetrical chest expansion, good air entry bilaterally GI/Abdomen: soft, NTND, good bowel sounds, no guarding or rebound /Bladder: no suprapubic tenderness, no CVA or paraspinal tenderness EXT/Skin: no c/c/e, obvious rash, erythematous maculopapular diffuse rash without vesicles and pustules head to toe. MSK: FROM x 4 Neuro: CN 2-12 grossly intact, no new focal deficits Psych: calm - Constitutional Vitals: Temp Pulse Resp BP Pulse Ox 94.5 F L 65 18 111/78 100 01/21/17 07:49 01/21/17 07:49 01/21/17 07:49 01/21/17 07:49 01/21/17 07:49 General appearance: Present: no acute distress Results - Labs CBC & Chem 7: 01/19/17 16:22 01/19/17 16:22 Labs: Laboratory Last Values WBC 5.5 K/mm3 (4.5-11.0) 01/19/17 16:22 RBC 3.15 M/mm3 (3.65-5.03) L 01/19/17 16:22 Hgb 8.8 gm/dl (11.8-15.2) L 01/19/17 16:22 Hct 26.7 % (35.5-45.6) L 01/19/17 16:22 MCV 85 fl (84-94) 01/19/17 16:22 MCH 28 pg (28-32) 01/19/17 16:22 MCHC 33 % (32-34) 01/19/17 16:22 RDW 20.1 % (13.2-15.2) H 01/19/17 16:22 Plt Count 226 K/mm3 (140-440) 01/19/17 16:22 Lymph % (Auto) 24.4 % (13.4-35.0) 01/19/17 16:22 [place] % (Auto) 3.5 % (0.0-7.3) 01/19/17 16:22 Eos % (Auto) 2.3 % (0.0-4.3) 01/19/17 16:22 Baso % (Auto) 0.3 % (0.0-1.8) 01/19/17 16:22 Lymph # 1.3 K/mm3 (1.2-5.4) 01/19/17 16:22 [place] # 0.2 K/mm3 (0.0-0.8) 01/19/17 16:22 Eos # 0.1 K/mm3 (0.0-0.4) 01/19/17 16:22 Baso # 0.0 K/mm3 (0.0-0.1) 01/19/17 16:22 Seg Neutrophils % 69.5 % (40.0-70.0) 01/19/17 16:22 Seg Neutrophils # 3.8 K/mm3 (1.8-7.7) 01/19/17 16:22 PT 13.8 Sec. (12.2-14.9) 01/19/17 16:22 INR 1.01 (0.87-1.13) 01/19/17 16:22 VBG pH 7.536 (7.320-7.420) H 01/19/17 16:22 Sodium 135 mmol/L (137-145) L 01/19/17 16:22 Potassium 3.7 mmol/L (3.6-5.0) 01/19/17 16:22 Chloride 96.8 mmol/L (98-107) L 01/19/17 16:22 Carbon Dioxide 21 mmol/L (22-30) L 01/19/17 16:22 Anion Gap 21 mmol/L 01/19/17 16:22 BUN 11 mg/dL (9-20) 01/19/17 16:22 Creatinine 1.0 mg/dL (0.8-1.5) 01/19/17 16:22 Estimated GFR > 60 ml/min 01/19/17 16:22 BUN/Creatinine Ratio 11 % 01/19/17 16:22 Glucose 117 mg/dL (75-100) H 01/19/17 16:22 Lactic Acid 1.40 mmol/L (0.7-2.0) 01/19/17 18:28 Calcium 7.8 mg/dL (8.4-10.2) L 01/19/17 16:22 Total Bilirubin 0.50 mg/dL (0.1-1.2) 01/19/17 16:22 AST 26 units/L (5-40) 01/19/17 16:22 ALT 24 units/L (7-56) 01/19/17 16:22 Alkaline Phosphatase 122 units/L (35-129) 01/19/17 16:22 Total Protein 7.1 g/dL (6.3-8.2) 01/19/17 16:22 Albumin 3.5 g/dL (3.9-5) L 01/19/17 16:22 Albumin/Globulin Ratio 1.0 % 01/19/17 16:22 Urine Color Yellow (Yellow) 01/19/17 Unknown Urine Turbidity Clear (Clear) 01/19/17 Unknown Urine pH 6.0 (5.0-7.0) 01/19/17 Unknown Ur Specific [place] 1.017 (1.003-1.030) 01/19/17 Unknown Urine Protein <15 mg/dl mg/dL (Negative) 01/19/17 Unknown Urine Glucose (UA) Neg mg/dL (Negative) 01/19/17 Unknown Urine Ketones Neg mg/dL (Negative) 01/19/17 Unknown Urine Blood Neg (Negative) 01/19/17 Unknown Urine Nitrite Neg (Negative) 01/19/17 Unknown Urine Bilirubin Neg (Negative) 01/19/17 Unknown Urine Urobilinogen 2.0 mg/dL (<2.0) 01/19/17 Unknown Ur Leukocyte Esterase Tr (Negative) 01/19/17 Unknown Urine WBC (Auto) 5.0 /HPF (0.0-6.0) 01/19/17 Unknown Urine RBC (Auto) 2.0 /HPF (0.0-6.0) 01/19/17 Unknown U Epithel Cells (Auto) < 1.0 /HPF (0-13.0) 01/19/17 Unknown
[2017-01-21] MEDS ORDERED: XYLOCAINE 1% 20 mL INFILTRATI ONE (16:34)
--- NOTE | 2017-01-21 16:35 | Consultation ---
History of Present Illness Consult date: 01/21/17 Reason for consult: other (Skin rash) - History of present illness History of present illness: 31 yo male with skin rash on legs, back and arms. I have been asked to perform a skin biopsy. Past History Past Medical History: other (HIV, cryptococcal meningitis and fungemia ) Medications and Allergies Allergies Allergy/AdvReac Type Severity Reaction Status Date / Time No Known Allergies Allergy Unverified 12/12/16 10:09 Home Medications Medication Instructions Recorded Confirmed Last Taken Type Olanzapine [ZyPREXA] 20 mg PO QDAY 11/01/16 01/19/17 01/19/17 History Famotidine [Pepcid] 20 mg PO BID #60 tablet 12/25/16 01/19/17 01/19/17 Rx Fluconazole [Diflucan TAB] 400 mg PO QDAY 60 Days tablet 12/25/16 01/19/1706/02 Rx Promethazine [Phenergan TAB] 25 mg PO Q6HR PRN #30 tab 12/25/16 01/19/17 Rx Active Meds: Active Medications Diphenhydramine HCl (Benadryl) 25 mg PO Q6H PRN PRN Reason: Itching Enoxaparin Sodium (Lovenox) 40 mg SUB-Q QDAY [facility] Last Admin: 01/21/17 10:18 Dose: 40 mg Famotidine (Pepcid) 20 mg PO BID [facility] Last Admin: 01/21/17 10:17 Dose: 20 mg Hydrophilic Ointment (Vaseline Lip Therapy) 1 applic TP DIRECT PRN PRN Reason: Dry Lips Last Admin: 01/21/17 10:19 Dose: 1 applic Sodium Chloride (Nacl 0.9% 1000 Ml) 1,000 mls @ 150 mls/hr IV DIRECT [facility] Last Admin: 01/21/17 10:10 Dose: 150 mls/hr Methylprednisolone Sodium Succinate (Solu-Medrol) 40 mg IV DAILY [facility] Last Admin: 01/21/17 10:18 Dose: 40 mg Olanzapine (Zyprexa) 20 mg PO QDAY [facility] Last Admin: 01/21/17 10:17 Dose: 20 mg Oxycodone/Acetaminophen (Percocet 5/325) 1 tab PO Q6H PRN PRN Reason: Pain, Moderate (4-6) Promethazine HCl (Phenergan) 25 mg PO Q6H PRN PRN Reason: Nausea or vomiting Review of Systems All systems: negative Exam Vital Signs Temp Pulse Resp BP Pulse Ox 102.0 F H 115 H 18 112/69 100 01/19/17 16:05 01/19/17 16:05 01/19/17 16:05 01/19/17 16:05 01/19/17 16:05 - General physical appearance Positive: well developed, well nourished, no distress - Eyes Positive: PERRL, normal occular movement - ENT Positive: normal pinna, normal nares, normal mucosa, no hearing loss, no congestion - Neck Positive: no masses, no bruits, trachea midline, no venous distension - Respiratory Positive: normal expansion, normal respiratory effort, clear to auscultation - Cardiovascular Rhythm: regular Heart Sounds: Present: S1 & S2. Absent: rub, click - Extremities Extremities: no ischemia, pulses symmetrical, No edema - Breasts Breasts: deferred - Abdomen Abdomen: Present: soft, bowel sounds normal. Absent: tender, distended Hernia: none - Genitourinary Male Genitourinary: deferred - Integumentary other (There is a diffuse maculopapular rash on the pt's legs, arms and back. The rash is expecially severe on his left arm.) - Neurologic Neurologic: alert and oriented to time, place and person, motor strength and sensation are grossly intact - Musculoskeletal normal gait, normal posture - Psychiatric Psychiatric: appropriate mood/affect, intact judgment & insight Results - Labs 01/19/17 16:22 01/19/17 16:22 Assessment and Plan - Patient Problems (1) Skin rash Current Visit: Yes Status: Acute Plan to address problem: 1) Will perform a punch biopsy under local anesthesia today.
--- NOTE | 2017-01-21 17:08 | Post Operative Note ---
Pre-op diagnosis: Skin rash, left arm Post-op diagnosis: same Procedure: 4 mm punch biopsy Anesthesia: local (Lidocaine, 1%, 2 ml) Surgeon: DENISHA ELLIOTT Estimated blood loss: minimal Pathology: list (Skin biopsy, left arm) Specimen disposition: to lab Condition: stable Disposition: floor
[2017-01-22] MEDS: NACL 0.9% 1000 ML 1,000 ML IV SCH ×2 (07:43→22:18)
--- NOTE | 2017-01-22 09:36 | Progress Note ---
<DONOVAN MORRIS - Last Filed: 01/22/17 09:33> Assessment and Plan Assessment and plan: Patient is 31 years old male recently diagnosed with HIV/AIDS. 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 Patient stated that since yesterday he started having a fever and generalized rash. Patient denied any cough or chest pain. He denied nausea or vomiting. No urinary symptoms. Patient denied any new medication. He stated that he is not on any antiviral medication yet. Denied any headache, confusion numbness or tingling sensation. No bowel or bladder incontinence Assessment and Plan Diffuse rash, allergic reaction Start high-dose IV steroids, Vanco, ceftaz, IV fluids, follow cultures Derm consulted Surgical consulted- biopsy done yesterday, results pending AIDS ID following - stopped cefepime and fluconazole IV solumedrol, IVF History of Cryptococcal meningitis ID consulted Depression Continue Home meds DVT prophylaxis On Lovenox History Interval history: Patient is awake and alert in bed. Denies SOB, CP, N/V Hospitalist Physical - Constitutional Vitals: Temp Pulse Resp BP Pulse Ox 97.5 F L 67 18 109/62 100 01/21/17 23:43 01/21/17 23:43 01/21/17 23:43 01/21/17 23:43 01/21/17 23:43 General appearance: Present: no acute distress Results - Labs CBC & Chem 7: 01/19/17 16:22 01/19/17 16:22 Labs: Laboratory Last Values WBC 5.5 K/mm3 (4.5-11.0) 01/19/17 16:22 RBC 3.15 M/mm3 (3.65-5.03) L 01/19/17 16:22 Hgb 8.8 gm/dl (11.8-15.2) L 01/19/17 16:22 Hct 26.7 % (35.5-45.6) L 01/19/17 16:22 MCV 85 fl (84-94) 01/19/17 16:22 MCH 28 pg (28-32) 01/19/17 16:22 MCHC 33 % (32-34) 01/19/17 16:22 RDW 20.1 % (13.2-15.2) H 01/19/17 16:22 Plt Count 226 K/mm3 (140-440) 01/19/17 16:22 Lymph % (Auto) 24.4 % (13.4-35.0) 01/19/17 16:22 [place] % (Auto) 3.5 % (0.0-7.3) 01/19/17 16:22 Eos % (Auto) 2.3 % (0.0-4.3) 01/19/17 16:22 Baso % (Auto) 0.3 % (0.0-1.8) 01/19/17 16:22 Lymph # 1.3 K/mm3 (1.2-5.4) 01/19/17 16:22 [place] # 0.2 K/mm3 (0.0-0.8) 01/19/17 16:22 Eos # 0.1 K/mm3 (0.0-0.4) 01/19/17 16:22 Baso # 0.0 K/mm3 (0.0-0.1) 01/19/17 16:22 Seg Neutrophils % 69.5 % (40.0-70.0) 01/19/17 16:22 Seg Neutrophils # 3.8 K/mm3 (1.8-7.7) 01/19/17 16:22 PT 13.8 Sec. (12.2-14.9) 01/19/17 16:22 INR 1.01 (0.87-1.13) 01/19/17 16:22 VBG pH 7.536 (7.320-7.420) H 01/19/17 16:22 Sodium 135 mmol/L (137-145) L 01/19/17 16:22 Potassium 3.7 mmol/L (3.6-5.0) 01/19/17 16:22 Chloride 96.8 mmol/L (98-107) L 01/19/17 16:22 Carbon Dioxide 21 mmol/L (22-30) L 01/19/17 16:22 Anion Gap 21 mmol/L 01/19/17 16:22 BUN 11 mg/dL (9-20) 01/19/17 16:22 Creatinine 1.0 mg/dL (0.8-1.5) 01/19/17 16:22 Estimated GFR > 60 ml/min 01/19/17 16:22 BUN/Creatinine Ratio 11 % 01/19/17 16:22 Glucose 117 mg/dL (75-100) H 01/19/17 16:22 Lactic Acid 1.40 mmol/L (0.7-2.0) 01/19/17 18:28 Calcium 7.8 mg/dL (8.4-10.2) L 01/19/17 16:22 Total Bilirubin 0.50 mg/dL (0.1-1.2) 01/19/17 16:22 AST 26 units/L (5-40) 01/19/17 16:22 ALT 24 units/L (7-56) 01/19/17 16:22 Alkaline Phosphatase 122 units/L (35-129) 01/19/17 16:22 Total Protein 7.1 g/dL (6.3-8.2) 01/19/17 16:22 Albumin 3.5 g/dL (3.9-5) L 01/19/17 16:22 Albumin/Globulin Ratio 1.0 % 01/19/17 16:22 Urine Color Yellow (Yellow) 01/19/17 Unknown Urine Turbidity Clear (Clear) 01/19/17 Unknown Urine pH 6.0 (5.0-7.0) 01/19/17 Unknown Ur Specific [place] 1.017 (1.003-1.030) 01/19/17 Unknown Urine Protein <15 mg/dl mg/dL (Negative) 01/19/17 Unknown Urine Glucose (UA) Neg mg/dL (Negative) 01/19/17 Unknown Urine Ketones Neg mg/dL (Negative) 01/19/17 Unknown Urine Blood Neg (Negative) 01/19/17 Unknown Urine Nitrite Neg (Negative) 01/19/17 Unknown Urine Bilirubin Neg (Negative) 01/19/17 Unknown Urine Urobilinogen 2.0 mg/dL (<2.0) 01/19/17 Unknown Ur Leukocyte Esterase Tr (Negative) 01/19/17 Unknown Urine WBC (Auto) 5.0 /HPF (0.0-6.0) 01/19/17 Unknown Urine RBC (Auto) 2.0 /HPF (0.0-6.0) 01/19/17 Unknown U Epithel Cells (Auto) < 1.0 /HPF (0-13.0) 01/19/17 Unknown <FAHAD ESCALANTE R - Last Filed: 01/22/17 12:00> Assessment and Plan Assessment and plan: I saw and evaluated the patient. I agree with the findings and the plan of care as documented in the Nurse Practitioner's~note, with the following corrections and additions. see my progress note Hospitalist Physical - Constitutional Vitals: Temp Pulse Resp BP Pulse Ox 98.2 F 60 18 122/82 100 01/22/17 09:07 01/22/17 09:07 01/22/17 09:07 01/22/17 09:07 01/22/17 09:07 Results - Labs CBC & Chem 7: 01/19/17 16:22 01/19/17 16:22 Labs: Laboratory Last Values WBC 5.5 K/mm3 (4.5-11.0) 01/19/17 16:22 RBC 3.15 M/mm3 (3.65-5.03) L 01/19/17 16:22 Hgb 8.8 gm/dl (11.8-15.2) L 01/19/17 16:22 Hct 26.7 % (35.5-45.6) L 01/19/17 16:22 MCV 85 fl (84-94) 01/19/17 16:22 MCH 28 pg (28-32) 01/19/17 16:22 MCHC 33 % (32-34) 01/19/17 16:22 RDW 20.1 % (13.2-15.2) H 01/19/17 16:22 Plt Count 226 K/mm3 (140-440) 01/19/17 16:22 Lymph % (Auto) 24.4 % (13.4-35.0) 01/19/17 16:22 [place] % (Auto) 3.5 % (0.0-7.3) 01/19/17 16:22 Eos % (Auto) 2.3 % (0.0-4.3) 01/19/17 16:22 Baso % (Auto) 0.3 % (0.0-1.8) 01/19/17 16:22 Lymph # 1.3 K/mm3 (1.2-5.4) 01/19/17 16:22 [place] # 0.2 K/mm3 (0.0-0.8) 01/19/17 16:22 Eos # 0.1 K/mm3 (0.0-0.4) 01/19/17 16:22 Baso # 0.0 K/mm3 (0.0-0.1) 01/19/17 16:22 Seg Neutrophils % 69.5 % (40.0-70.0) 01/19/17 16:22 Seg Neutrophils # 3.8 K/mm3 (1.8-7.7) 01/19/17 16:22 PT 13.8 Sec. (12.2-14.9) 01/19/17 16:22 INR 1.01 (0.87-1.13) 01/19/17 16:22 VBG pH 7.536 (7.320-7.420) H 01/19/17 16:22 Sodium 135 mmol/L (137-145) L 01/19/17 16:22 Potassium 3.7 mmol/L (3.6-5.0) 01/19/17 16:22 Chloride 96.8 mmol/L (98-107) L 01/19/17 16:22 Carbon Dioxide 21 mmol/L (22-30) L 01/19/17 16:22 Anion Gap 21 mmol/L 01/19/17 16:22 BUN 11 mg/dL (9-20) 01/19/17 16:22 Creatinine 1.0 mg/dL (0.8-1.5) 01/19/17 16:22 Estimated GFR > 60 ml/min 01/19/17 16:22 BUN/Creatinine Ratio 11 % 01/19/17 16:22 Glucose 117 mg/dL (75-100) H 01/19/17 16:22 Lactic Acid 1.40 mmol/L (0.7-2.0) 01/19/17 18:28 Calcium 7.8 mg/dL (8.4-10.2) L 01/19/17 16:22 Total Bilirubin 0.50 mg/dL (0.1-1.2) 01/19/17 16:22 AST 26 units/L (5-40) 01/19/17 16:22 ALT 24 units/L (7-56) 01/19/17 16:22 Alkaline Phosphatase 122 units/L (35-129) 01/19/17 16:22 Total Protein 7.1 g/dL (6.3-8.2) 01/19/17 16:22 Albumin 3.5 g/dL (3.9-5) L 01/19/17 16:22 Albumin/Globulin Ratio 1.0 % 01/19/17 16:22 Urine Color Yellow (Yellow) 01/19/17 Unknown Urine Turbidity Clear (Clear) 01/19/17 Unknown Urine pH 6.0 (5.0-7.0) 01/19/17 Unknown Ur Specific [place] 1.017 (1.003-1.030) 01/19/17 Unknown Urine Protein <15 mg/dl mg/dL (Negative) 01/19/17 Unknown Urine Glucose (UA) Neg mg/dL (Negative) 01/19/17 Unknown Urine Ketones Neg mg/dL (Negative) 01/19/17 Unknown Urine Blood Neg (Negative) 01/19/17 Unknown Urine Nitrite Neg (Negative) 01/19/17 Unknown Urine Bilirubin Neg (Negative) 01/19/17 Unknown Urine Urobilinogen 2.0 mg/dL (<2.0) 01/19/17 Unknown Ur Leukocyte Esterase Tr (Negative) 01/19/17 Unknown Urine WBC (Auto) 5.0 /HPF (0.0-6.0) 01/19/17 Unknown Urine RBC (Auto) 2.0 /HPF (0.0-6.0) 01/19/17 Unknown U Epithel Cells (Auto) < 1.0 /HPF (0-13.0) 01/19/17 Unknown
[2017-01-22] MEDS: LOVENOX SUB-Q SCH (10:33)
[2017-01-22] MEDS: PEPCID PO SCH ×2 (10:34→22:21)
--- NOTE | 2017-01-22 11:39 | Progress Note ---
Assessment and Plan Assessment: 1) SIRS: better. Etiology most likely extensive rash. 2) Extensive papular rash affecting entire body, palms, soles, mouth: ? 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 VDRL negative. Cryptococcus CSF antigen was positive at 1:2048. -Blood cx positive Crypto -Repeat LP -opening pressure normal 4) HIV infection / AIDS -WQ=446,474 -CD4=64 -HIV-Genotype - pansensitive Plan: -IVF -IV solumedrol -f/u skin biopsy -Derm consult -avoid unnecessary meds -f/u RPR -contact / droplet isolation for now -will add itraconazole versus voriconazole to keep treating crypto in next 1-3 days -will add azithromycin 1200 mg po qweek and mepron for MAC and PJP prophylaxis in 1-[address] Ann for your consultation, will follow up with you. Yudelka Gillis MD Infectious Diseases Specialist [facility] [phone] Subjective Date of service: 01/22/17 Principal diagnosis: rash Interval history: Feels better, decreased skin pain. NO fever. Microbiology: Blood cultures: 01/19 ngtd Urine cultures: 01/19 neg Influenza: neg Current Antimicrobials: none Previous Antimicrobials: cefepime fluconazole Objective - Exam Narrative Exam: General appearance: Alert in NAD, conversant Eyes: anicteric sclerae, moist conjunctivae; no lid-lag; PERRLA HENT: Atraumatic; oropharynx +oral mucosa with ulcers Neck: Trachea midline; supple, no thyromegaly or lymphadenopathy Lungs: CTA CV: RRR, no murmurs Abdomen: Soft, non-tender; no masses or hepatosplenomegaly Extremities: No peripheral edema or extremity lymphadenopathy Skin: +extensive maked nodular erythematous rash over entire body, face, palms, soles, mouth - some better Psych: Appropriate affect, alert and oriented to person, place and time. Neuro: alert and oriented x 3. Moving all extermities Lines: No CVL / PICC - Constitutional Vitals: Vital Signs Temp Pulse Resp BP Pulse Ox 98.2 F 60 18 122/82 100 01/22/17 09:07 01/22/17 09:07 01/22/17 09:07 01/22/17 09:07 01/22/17 09:07 Temperature -Last 24 Hours Temperature 98.2 F Temperature 97.5 F Temperature 97.4 F - Labs CBC & Chem 7: 01/19/17 16:22 01/19/17 16:22
--- NOTE | 2017-01-22 11:59 | Progress Note ---
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 -Disseminated rash, either drug eruption vs viral exanthem: Discussed with Dr. 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 Ascencio: "1) SIRS: better. Etiology most likely extensive rash. 2) Extensive papular rash affecting entire body, palms, soles, mouth: ? 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 VDRL negative. Cryptococcus CSF antigen was positive at 1:2048. -Blood cx positive Crypto -Repeat LP -opening pressure normal 4) HIV infection / AIDS -JS=945,474 -CD4=64 -HIV-Genotype - pansensitive Plan: -IVF -IV solumedrol -f/u skin biopsy -Derm consult -avoid unnecessary meds -f/u RPR -contact / droplet isolation for now -will add itraconazole versus voriconazole to keep treating crypto in next 1-3 days -will add azithromycin 1200 mg po qweek and mepron for MAC and PJP prophylaxis in 1-3 days" Awaiting skin bx Patient has been accepted into Hospice due to end stage AIDS. d/w Dr. Ascencio History Interval history: Patient was seen and examined. Follow-up on current diagnosis/rash which is still present. Overnight uneventful. Patient denies any chest pain, shortness breath, nausea/vomiting or severe headaches. Imaging, nursing note, chart, labs and old chart reviewed. Discussed with patient. Hospitalist Physical - Physical exam Narrative exam: GEN: Ill appearing, NAD, AWAKE, ALERT, ORIENTATED 3 HEENT: NCAT, EOMI, PERRL, OP with jairo viv type of appearance on lips NECK: supple, no adenopathy, no thyromegaly, no JVD CVS/HEART: RRR, NORMAL S1S2, NO JVD, pulses present bilaterally CHEST/LUNGS: CTA B, Symmetrical chest expansion, good air entry bilaterally GI/Abdomen: soft, NTND, good bowel sounds, no guarding or rebound /Bladder: no suprapubic tenderness, no CVA or paraspinal tenderness EXT/Skin: no c/c/e, obvious rash, erythematous maculopapular diffuse rash without vesicles and pustules head to toe. MSK: FROM x 4 Neuro: CN 2-12 grossly intact, no new focal deficits Psych: calm - Constitutional Vitals: Temp Pulse Resp BP Pulse Ox 98.2 F 60 18 122/82 100 01/22/17 09:07 01/22/17 09:07 01/22/17 09:07 01/22/17 09:07 01/22/17 09:07 General appearance: Present: no acute distress Results - Labs CBC & Chem 7: 01/19/17 16:22 01/19/17 16:22 Labs: Laboratory Last Values WBC 5.5 K/mm3 (4.5-11.0) 01/19/17 16:22 RBC 3.15 M/mm3 (3.65-5.03) L 01/19/17 16:22 Hgb 8.8 gm/dl (11.8-15.2) L 01/19/17 16:22 Hct 26.7 % (35.5-45.6) L 01/19/17 16:22 MCV 85 fl (84-94) 01/19/17 16:22 MCH 28 pg (28-32) 01/19/17 16:22 MCHC 33 % (32-34) 01/19/17 16:22 RDW 20.1 % (13.2-15.2) H 01/19/17 16:22 Plt Count 226 K/mm3 (140-440) 01/19/17 16:22 Lymph % (Auto) 24.4 % (13.4-35.0) 01/19/17 16:22 [place] % (Auto) 3.5 % (0.0-7.3) 01/19/17 16:22 Eos % (Auto) 2.3 % (0.0-4.3) 01/19/17 16:22 Baso % (Auto) 0.3 % (0.0-1.8) 01/19/17 16:22 Lymph # 1.3 K/mm3 (1.2-5.4) 01/19/17 16:22 [place] # 0.2 K/mm3 (0.0-0.8) 01/19/17 16:22 Eos # 0.1 K/mm3 (0.0-0.4) 01/19/17 16:22 Baso # 0.0 K/mm3 (0.0-0.1) 01/19/17 16:22 Seg Neutrophils % 69.5 % (40.0-70.0) 01/19/17 16:22 Seg Neutrophils # 3.8 K/mm3 (1.8-7.7) 01/19/17 16:22 PT 13.8 Sec. (12.2-14.9) 01/19/17 16:22 INR 1.01 (0.87-1.13) 01/19/17 16:22 VBG pH 7.536 (7.320-7.420) H 01/19/17 16:22 Sodium 135 mmol/L (137-145) L 01/19/17 16:22 Potassium 3.7 mmol/L (3.6-5.0) 01/19/17 16:22 Chloride 96.8 mmol/L (98-107) L 01/19/17 16:22 Carbon Dioxide 21 mmol/L (22-30) L 01/19/17 16:22 Anion Gap 21 mmol/L 01/19/17 16:22 BUN 11 mg/dL (9-20) 01/19/17 16:22 Creatinine 1.0 mg/dL (0.8-1.5) 01/19/17 16:22 Estimated GFR > 60 ml/min 01/19/17 16:22 BUN/Creatinine Ratio 11 % 01/19/17 16:22 Glucose 117 mg/dL (75-100) H 01/19/17 16:22 Lactic Acid 1.40 mmol/L (0.7-2.0) 01/19/17 18:28 Calcium 7.8 mg/dL (8.4-10.2) L 01/19/17 16:22 Total Bilirubin 0.50 mg/dL (0.1-1.2) 01/19/17 16:22 AST 26 units/L (5-40) 01/19/17 16:22 ALT 24 units/L (7-56) 01/19/17 16:22 Alkaline Phosphatase 122 units/L (35-129) 01/19/17 16:22 Total Protein 7.1 g/dL (6.3-8.2) 01/19/17 16:22 Albumin 3.5 g/dL (3.9-5) L 01/19/17 16:22 Albumin/Globulin Ratio 1.0 % 01/19/17 16:22 Urine Color Yellow (Yellow) 01/19/17 Unknown Urine Turbidity Clear (Clear) 01/19/17 Unknown Urine pH 6.0 (5.0-7.0) 01/19/17 Unknown Ur Specific [place] 1.017 (1.003-1.030) 01/19/17 Unknown Urine Protein <15 mg/dl mg/dL (Negative) 01/19/17 Unknown Urine Glucose (UA) Neg mg/dL (Negative) 01/19/17 Unknown Urine Ketones Neg mg/dL (Negative) 01/19/17 Unknown Urine Blood Neg (Negative) 01/19/17 Unknown Urine Nitrite Neg (Negative) 01/19/17 Unknown Urine Bilirubin Neg (Negative) 01/19/17 Unknown Urine Urobilinogen 2.0 mg/dL (<2.0) 01/19/17 Unknown Ur Leukocyte Esterase Tr (Negative) 01/19/17 Unknown Urine WBC (Auto) 5.0 /HPF (0.0-6.0) 01/19/17 Unknown Urine RBC (Auto) 2.0 /HPF (0.0-6.0) 01/19/17 Unknown U Epithel Cells (Auto) < 1.0 /HPF (0-13.0) 01/19/17 Unknown
[2017-01-23] MEDS: NACL 0.9% 1000 ML 1,000 ML IV SCH (05:55)
--- NOTE | 2017-01-23 10:12 | Progress Note ---
<DONOVAN MORRIS - Last Filed: 01/23/17 11:57> Assessment and Plan Assessment and plan: Patient is 31 years old male recently diagnosed with HIV/AIDS. 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 Patient stated that since yesterday he started having a fever and generalized rash. Patient denied any cough or chest pain. He denied nausea or vomiting. No urinary symptoms. Patient denied any new medication. He stated that he is not on any antiviral medication yet. Denied any headache, confusion numbness or tingling sensation. No bowel or bladder incontinence Assessment and Plan Extensive papular rash affecting entire body, palms, soles, mouth ? SJS due to fluconazole. 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 Denies SOB, CP, N/V Hospitalist Physical - Constitutional Vitals: Temp Pulse Resp BP Pulse Ox 97.6 F 77 18 139/102 100 01/23/17 08:27 01/23/17 08:27 01/23/17 08:27 01/23/17 08:27 01/23/17 08:27 General appearance: Present: no acute distress - EENT Eyes: Present: PERRL, EOM intact ENT: hearing intact, ulcerations - Neck Neck: Present: supple, normal ROM - Respiratory Respiratory effort: normal Respiratory: bilateral: CTA - Cardiovascular Rhythm: regular Heart Sounds: Present: S1 & S2 - Extremities Extremities: no ischemia, No edema Peripheral Pulses: within normal limits - Abdominal General gastrointestinal: soft, non-tender - Integumentary Integumentary: Present: warm, dry, rash - Psychiatric Psychiatric: appropriate mood/affect, cooperative - Neurologic Neurologic: CNII-XII intact, moves all extremities - Allied Health Allied health notes reviewed: nursing Results - Labs CBC & Chem 7: 01/19/17 16:22 01/19/17 16:22 Labs: Laboratory Last Values WBC 5.5 K/mm3 (4.5-11.0) 01/19/17 16:22 RBC 3.15 M/mm3 (3.65-5.03) L 01/19/17 16:22 Hgb 8.8 gm/dl (11.8-15.2) L 01/19/17 16:22 Hct 26.7 % (35.5-45.6) L 01/19/17 16:22 MCV 85 fl (84-94) 01/19/17 16:22 MCH 28 pg (28-32) 01/19/17 16:22 MCHC 33 % (32-34) 01/19/17 16:22 RDW 20.1 % (13.2-15.2) H 01/19/17 16:22 Plt Count 226 K/mm3 (140-440) 01/19/17 16:22 Lymph % (Auto) 24.4 % (13.4-35.0) 01/19/17 16:22 [place] % (Auto) 3.5 % (0.0-7.3) 01/19/17 16:22 Eos % (Auto) 2.3 % (0.0-4.3) 01/19/17 16:22 Baso % (Auto) 0.3 % (0.0-1.8) 01/19/17 16:22 Lymph # 1.3 K/mm3 (1.2-5.4) 01/19/17 16:22 [place] # 0.2 K/mm3 (0.0-0.8) 01/19/17 16:22 Eos # 0.1 K/mm3 (0.0-0.4) 01/19/17 16:22 Baso # 0.0 K/mm3 (0.0-0.1) 01/19/17 16:22 Seg Neutrophils % 69.5 % (40.0-70.0) 01/19/17 16:22 Seg Neutrophils # 3.8 K/mm3 (1.8-7.7) 01/19/17 16:22 PT 13.8 Sec. (12.2-14.9) 01/19/17 16:22 INR 1.01 (0.87-1.13) 01/19/17 16:22 VBG pH 7.536 (7.320-7.420) H 01/19/17 16:22 Sodium 135 mmol/L (137-145) L 01/19/17 16:22 Potassium 3.7 mmol/L (3.6-5.0) 01/19/17 16:22 Chloride 96.8 mmol/L (98-107) L 01/19/17 16:22 Carbon Dioxide 21 mmol/L (22-30) L 01/19/17 16:22 Anion Gap 21 mmol/L 01/19/17 16:22 BUN 11 mg/dL (9-20) 01/19/17 16:22 Creatinine 1.0 mg/dL (0.8-1.5) 01/19/17 16:22 Estimated GFR > 60 ml/min 01/19/17 16:22 BUN/Creatinine Ratio 11 % 01/19/17 16:22 Glucose 117 mg/dL (75-100) H 01/19/17 16:22 Lactic Acid 1.40 mmol/L (0.7-2.0) 01/19/17 18:28 Calcium 7.8 mg/dL (8.4-10.2) L 01/19/17 16:22 Total Bilirubin 0.50 mg/dL (0.1-1.2) 01/19/17 16:22 AST 26 units/L (5-40) 01/19/17 16:22 ALT 24 units/L (7-56) 01/19/17 16:22 Alkaline Phosphatase 122 units/L (35-129) 01/19/17 16:22 C-Reactive Protein 2.10 mg/dL (0.00-1.30) H 01/23/17 Unknown Total Protein 7.1 g/dL (6.3-8.2) 01/19/17 16:22 Albumin 3.5 g/dL (3.9-5) L 01/19/17 16:22 Albumin/Globulin Ratio 1.0 % 01/19/17 16:22 Urine Color Yellow (Yellow) 01/19/17 Unknown Urine Turbidity Clear (Clear) 01/19/17 Unknown Urine pH 6.0 (5.0-7.0) 01/19/17 Unknown Ur Specific [place] 1.017 (1.003-1.030) 01/19/17 Unknown Urine Protein <15 mg/dl mg/dL (Negative) 01/19/17 Unknown Urine Glucose (UA) Neg mg/dL (Negative) 01/19/17 Unknown Urine Ketones Neg mg/dL (Negative) 01/19/17 Unknown Urine Blood Neg (Negative) 01/19/17 Unknown Urine Nitrite Neg (Negative) 01/19/17 Unknown Urine Bilirubin Neg (Negative) 01/19/17 Unknown Urine Urobilinogen 2.0 mg/dL (<2.0) 01/19/17 Unknown Ur Leukocyte Esterase Tr (Negative) 01/19/17 Unknown Urine WBC (Auto) 5.0 /HPF (0.0-6.0) 01/19/17 Unknown Urine RBC (Auto) 2.0 /HPF (0.0-6.0) 01/19/17 Unknown U Epithel Cells (Auto) < 1.0 /HPF (0-13.0) 01/19/17 Unknown RPR Nonreactive (Nonreactive) 01/21/17 14:53 <FAHAD ANN - Last Filed: 01/23/17 14:16> Assessment and Plan Assessment and plan: I saw and evaluated the patient. I agree with the findings and the plan of care as documented in the PA~note, with the following corrections and additions. per ID 1) SIRS: better. Etiology most likely extensive allergic rash. 2) Extensive papular rash affecting entire body, palms, soles, mouth: ? SJS due to fluconazole. 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 VDRL negative. Cryptococcus CSF antigen was positive at 1:2048. -Blood cx positive Crypto -Repeat LP -opening pressure normal -S/P ampho+5FC for 2 weeks then fluconazole 400 mg po since 12/25 until 01/21. Stopped due to allergic reaction. 4) HIV infection / AIDS -EW=[id number] -CD4=64 -HIV-Genotype - pansensitive Plan: -continue IV steroids -stop contact / droplet isolation for now -start azithromycin 1200 mg po qweek and mepron for MAC and PJP prophylaxis today -will start voriconazole 200 mg po bid x 1 day then 100 mg po bid TOMORROW -please monitor for 1-2 days after voriconazole starts -educate patient to watch for worsening rash I will be off this weekend, but available over the phone. Thank you Dr Ann for your consultation, will follow up with you. Hospitalist Physical - Constitutional Vitals: Temp Pulse Resp BP Pulse Ox 97.6 F 77 18 139/102 100 01/23/17 08:27 01/23/17 08:27 01/23/17 08:27 01/23/17 08:27 01/23/17 08:27 Results - Labs CBC & Chem 7: 01/19/17 16:22 01/19/17 16:22 Labs: Laboratory Last Values WBC 5.5 K/mm3 (4.5-11.0) 01/19/17 16:22 RBC 3.15 M/mm3 (3.65-5.03) L 01/19/17 16:22 Hgb 8.8 gm/dl (11.8-15.2) L 01/19/17 16:22 Hct 26.7 % (35.5-45.6) L 01/19/17 16:22 MCV 85 fl (84-94) 01/19/17 16:22 MCH 28 pg (28-32) 01/19/17 16:22 MCHC 33 % (32-34) 01/19/17 16:22 RDW 20.1 % (13.2-15.2) H 01/19/17 16:22 Plt Count 226 K/mm3 (140-440) 01/19/17 16:22 Lymph % (Auto) 24.4 % (13.4-35.0) 01/19/17 16:22 [place] % (Auto) 3.5 % (0.0-7.3) 01/19/17 16:22 Eos % (Auto) 2.3 % (0.0-4.3) 01/19/17 16:22 Baso % (Auto) 0.3 % (0.0-1.8) 01/19/17 16:22 Lymph # 1.3 K/mm3 (1.2-5.4) 01/19/17 16:22 [place] # 0.2 K/mm3 (0.0-0.8) 01/19/17 16:22 Eos # 0.1 K/mm3 (0.0-0.4) 01/19/17 16:22 Baso # 0.0 K/mm3 (0.0-0.1) 01/19/17 16:22 Seg Neutrophils % 69.5 % (40.0-70.0) 01/19/17 16:22 Seg Neutrophils # 3.8 K/mm3 (1.8-7.7) 01/19/17 16:22 PT 13.8 Sec. (12.2-14.9) 01/19/17 16:22 INR 1.01 (0.87-1.13) 01/19/17 16:22 VBG pH 7.536 (7.320-7.420) H 01/19/17 16:22 Sodium 135 mmol/L (137-145) L 01/19/17 16:22 Potassium 3.7 mmol/L (3.6-5.0) 01/19/17 16:22 Chloride 96.8 mmol/L (98-107) L 01/19/17 16:22 Carbon Dioxide 21 mmol/L (22-30) L 01/19/17 16:22 Anion Gap 21 mmol/L 01/19/17 16:22 BUN 11 mg/dL (9-20) 01/19/17 16:22 Creatinine 1.0 mg/dL (0.8-1.5) 01/19/17 16:22 Estimated GFR > 60 ml/min 01/19/17 16:22 BUN/Creatinine Ratio 11 % 01/19/17 16:22 Glucose 117 mg/dL (75-100) H 01/19/17 16:22 Lactic Acid 1.40 mmol/L (0.7-2.0) 01/19/17 18:28 Calcium 7.8 mg/dL (8.4-10.2) L 01/19/17 16:22 Total Bilirubin 0.50 mg/dL (0.1-1.2) 01/19/17 16:22 AST 26 units/L (5-40) 01/19/17 16:22 ALT 24 units/L (7-56) 01/19/17 16:22 Alkaline Phosphatase 122 units/L (35-129) 01/19/17 16:22 C-Reactive Protein 2.10 mg/dL (0.00-1.30) H 01/23/17 Unknown Total Protein 7.1 g/dL (6.3-8.2) 01/19/17 16:22 Albumin 3.5 g/dL (3.9-5) L 01/19/17 16:22 Albumin/Globulin Ratio 1.0 % 01/19/17 16:22 Urine Color Yellow (Yellow) 01/19/17 Unknown Urine Turbidity Clear (Clear) 01/19/17 Unknown Urine pH 6.0 (5.0-7.0) 01/19/17 Unknown Ur Specific [place] 1.017 (1.003-1.030) 01/19/17 Unknown Urine Protein <15 mg/dl mg/dL (Negative) 01/19/17 Unknown Urine Glucose (UA) Neg mg/dL (Negative) 01/19/17 Unknown Urine Ketones Neg mg/dL (Negative) 01/19/17 Unknown Urine Blood Neg (Negative) 01/19/17 Unknown Urine Nitrite Neg (Negative) 01/19/17 Unknown Urine Bilirubin Neg (Negative) 01/19/17 Unknown Urine Urobilinogen 2.0 mg/dL (<2.0) 01/19/17 Unknown Ur Leukocyte Esterase Tr (Negative) 01/19/17 Unknown Urine WBC (Auto) 5.0 /HPF (0.0-6.0) 01/19/17 Unknown Urine RBC (Auto) 2.0 /HPF (0.0-6.0) 01/19/17 Unknown U Epithel Cells (Auto) < 1.0 /HPF (0-13.0) 01/19/17 Unknown RPR Nonreactive (Nonreactive) 01/21/17 14:53
--- NOTE | 2017-01-23 10:25 | Progress Note ---
Assessment and Plan Assessment: 1) SIRS: better. Etiology most likely extensive allergic rash. 2) Extensive papular rash affecting entire body, palms, soles, mouth: ? SJS due to fluconazole. 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 VDRL negative. Cryptococcus CSF antigen was positive at 1:2048. -Blood cx positive Crypto -Repeat LP -opening pressure normal -S/P ampho+5FC for 2 weeks then fluconazole 400 mg po since 12/25 until 01/21. Stopped due to allergic reaction. 4) HIV infection / AIDS -TP=[id number] -CD4=64 -HIV-Genotype - pansensitive Plan: -continue IV steroids -stop contact / droplet isolation for now -start azithromycin 1200 mg po qweek and mepron for MAC and PJP prophylaxis today -will start voriconazole 200 mg po bid x 1 day then 100 mg po bid TOMORROW -please monitor for 1-2 days after voriconazole starts -educate patient to watch for worsening rash I will be off this weekend, but available over the phone. Thank you Dr Ann for your consultation, will follow up with you. Yudelka Gillis MD Infectious Diseases Specialist [facility] [phone] O [phone] Subjective Date of service: 01/23/17 Principal diagnosis: rash Interval history: Feels better, decreased skin pain. NO fever. Microbiology: Blood cultures: 01/19 ngtd Urine cultures: 01/19 neg Influenza: neg Stool: neg Current Antimicrobials: none Previous Antimicrobials: cefepime fluconazole Objective - Exam Narrative Exam: General appearance: Alert in NAD, conversant Eyes: anicteric sclerae, moist conjunctivae; no lid-lag; PERRLA HENT: Atraumatic; oropharynx +oral mucosa with ulcers Neck: Trachea midline; supple, no thyromegaly or lymphadenopathy Lungs: CTA CV: RRR, no murmurs Abdomen: Soft, non-tender; no masses or hepatosplenomegaly Extremities: No peripheral edema or extremity lymphadenopathy Skin: +extensive maked nodular erythematous rash over entire body, face, palms, soles, mouth - better Psych: Appropriate affect, alert and oriented to person, place and time. Neuro: alert and oriented x 3. Moving all extermities Lines: No CVL / PICC - Constitutional Vitals: Vital Signs Temp Pulse Resp BP Pulse Ox 97.6 F 77 18 139/102 100 01/23/17 08:27 01/23/17 08:27 01/23/17 08:27 01/23/17 08:27 01/23/17 08:27 Temperature -Last 24 Hours Temperature 97.6 F Temperature 98.0 F - Labs CBC & Chem 7: 01/19/17 16:22 01/19/17 16:22 Labs: Abnormal lab results 01/23/17 Range/Units Unknown C-Reactive Protein 2.10 H (0.00-1.30) mg/dL
[2017-01-23] MEDS: PEPCID PO SCH ×2 (10:47→23:09)
[2017-01-23] MEDS: LOVENOX SUB-Q SCH (10:47)
[2017-01-23] MEDS: MEPRON PO SCH (12:26)
[2017-01-24] MEDS: NACL 0.9% 1000 ML 1,000 ML IV SCH ×2 (06:35→14:40)
[2017-01-24] MEDS ORDERED: VORICONAZOLE PO ONE (08:00)
[2017-01-24] MEDS: PEPCID PO SCH ×2 (10:56→22:17)
[2017-01-24] MEDS: LOVENOX SUB-Q SCH (10:56)
[2017-01-24] MEDS: MEPRON PO SCH (10:57)
--- NOTE | 2017-01-24 13:46 | Progress Note ---
Assessment and Plan Assessment and plan: Patient is 31 years old male recently diagnosed with HIV/AIDS. 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 Patient stated that since yesterday he started having a fever and generalized rash. Patient denied any cough or chest pain. He denied nausea or vomiting. No urinary symptoms. Patient denied any new medication. He stated that he is not on any antiviral medication yet. Denied any headache, confusion numbness or tingling sensation. No bowel or bladder incontinence Extensive papular rash affecting entire body, palms, soles, mouth ? SJS due to fluconazole. 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 Etiology most likely extensive allergic rash. 2) Extensive papular rash affecting entire body, palms, soles, mouth: ? SJS due to fluconazole. 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 VDRL negative. Cryptococcus CSF antigen was positive at 1:2048. -Blood cx positive Crypto -Repeat LP -opening pressure normal -S/P ampho+5FC for 2 weeks then fluconazole 400 mg po since 12/25 until 01/21. Stopped due to allergic reaction. 4) HIV infection / AIDS -WJ=[id number] -CD4=64 -HIV-Genotype - pansensitive Plan: -continue IV steroids -stop contact / droplet isolation for now -start azithromycin 1200 mg po qweek and mepron for MAC and PJP prophylaxis today -will start voriconazole 200 mg po bid x 1 day then 100 mg po bid TOMORROW -please monitor for 1-2 days after voriconazole starts -educate patient to watch for worsening rash I will be off this weekend, but available over the phone. Thank you Dr Ann for your consultation, will follow up with you."\\ 01/24/17 Start voriconazole today History Interval history: Patient was seen and examined. Follow-up on current diagnosis/rash which is still present. Overnight uneventful. Patient denies any chest pain, shortness breath, nausea/vomiting or severe headaches. Imaging, nursing note, chart, labs and old chart reviewed. Discussed with patient. Hospitalist Physical - Physical exam Narrative exam: GEN: Ill appearing, NAD, AWAKE, ALERT, ORIENTATED 3 HEENT: NCAT, EOMI, PERRL, OP with jairo viv type of appearance on lips NECK: supple, no adenopathy, no thyromegaly, no JVD CVS/HEART: RRR, NORMAL S1S2, NO JVD, pulses present bilaterally CHEST/LUNGS: CTA B, Symmetrical chest expansion, good air entry bilaterally GI/Abdomen: soft, NTND, good bowel sounds, no guarding or rebound /Bladder: no suprapubic tenderness, no CVA or paraspinal tenderness EXT/Skin: no c/c/e, obvious rash, erythematous maculopapular diffuse rash without vesicles and pustules head to toe. MSK: FROM x 4 Neuro: CN 2-12 grossly intact, no new focal deficits Psych: calm - Constitutional Vitals: Temp Pulse Resp BP Pulse Ox 97.3 F L 78 18 143/109 100 01/24/17 08:07 01/24/17 08:07 01/24/17 08:07 01/24/17 08:07 01/24/17 08:07 General appearance: Present: no acute distress Results - Labs CBC & Chem 7: 01/19/17 16:22 01/19/17 16:22 Labs: Laboratory Last Values WBC 5.5 K/mm3 (4.5-11.0) 01/19/17 16:22 RBC 3.15 M/mm3 (3.65-5.03) L 01/19/17 16:22 Hgb 8.8 gm/dl (11.8-15.2) L 01/19/17 16:22 Hct 26.7 % (35.5-45.6) L 01/19/17 16:22 MCV 85 fl (84-94) 01/19/17 16:22 MCH 28 pg (28-32) 01/19/17 16:22 MCHC 33 % (32-34) 01/19/17 16:22 RDW 20.1 % (13.2-15.2) H 01/19/17 16:22 Plt Count 226 K/mm3 (140-440) 01/19/17 16:22 Lymph % (Auto) 24.4 % (13.4-35.0) 01/19/17 16:22 [place] % (Auto) 3.5 % (0.0-7.3) 01/19/17 16:22 Eos % (Auto) 2.3 % (0.0-4.3) 01/19/17 16:22 Baso % (Auto) 0.3 % (0.0-1.8) 01/19/17 16:22 Lymph # 1.3 K/mm3 (1.2-5.4) 01/19/17 16:22 [place] # 0.2 K/mm3 (0.0-0.8) 01/19/17 16:22 Eos # 0.1 K/mm3 (0.0-0.4) 01/19/17 16:22 Baso # 0.0 K/mm3 (0.0-0.1) 01/19/17 16:22 Seg Neutrophils % 69.5 % (40.0-70.0) 01/19/17 16:22 Seg Neutrophils # 3.8 K/mm3 (1.8-7.7) 01/19/17 16:22 PT 13.8 Sec. (12.2-14.9) 01/19/17 16:22 INR 1.01 (0.87-1.13) 01/19/17 16:22 VBG pH 7.536 (7.320-7.420) H 01/19/17 16:22 Sodium 135 mmol/L (137-145) L 01/19/17 16:22 Potassium 3.7 mmol/L (3.6-5.0) 01/19/17 16:22 Chloride 96.8 mmol/L (98-107) L 01/19/17 16:22 Carbon Dioxide 21 mmol/L (22-30) L 01/19/17 16:22 Anion Gap 21 mmol/L 01/19/17 16:22 BUN 11 mg/dL (9-20) 01/19/17 16:22 Creatinine 1.0 mg/dL (0.8-1.5) 01/19/17 16:22 Estimated GFR > 60 ml/min 01/19/17 16:22 BUN/Creatinine Ratio 11 % 01/19/17 16:22 Glucose 117 mg/dL (75-100) H 01/19/17 16:22 Lactic Acid 1.40 mmol/L (0.7-2.0) 01/19/17 18:28 Calcium 7.8 mg/dL (8.4-10.2) L 01/19/17 16:22 Total Bilirubin 0.50 mg/dL (0.1-1.2) 01/19/17 16:22 AST 26 units/L (5-40) 01/19/17 16:22 ALT 24 units/L (7-56) 01/19/17 16:22 Alkaline Phosphatase 122 units/L (35-129) 01/19/17 16:22 C-Reactive Protein 2.10 mg/dL (0.00-1.30) H 01/23/17 Unknown Total Protein 7.1 g/dL (6.3-8.2) 01/19/17 16:22 Albumin 3.5 g/dL (3.9-5) L 01/19/17 16:22 Albumin/Globulin Ratio 1.0 % 01/19/17 16:22 Urine Color Yellow (Yellow) 01/19/17 Unknown Urine Turbidity Clear (Clear) 01/19/17 Unknown Urine pH 6.0 (5.0-7.0) 01/19/17 Unknown Ur Specific [place] 1.017 (1.003-1.030) 01/19/17 Unknown Urine Protein <15 mg/dl mg/dL (Negative) 01/19/17 Unknown Urine Glucose (UA) Neg mg/dL (Negative) 01/19/17 Unknown Urine Ketones Neg mg/dL (Negative) 01/19/17 Unknown Urine Blood Neg (Negative) 01/19/17 Unknown Urine Nitrite Neg (Negative) 01/19/17 Unknown Urine Bilirubin Neg (Negative) 01/19/17 Unknown Urine Urobilinogen 2.0 mg/dL (<2.0) 01/19/17 Unknown Ur Leukocyte Esterase Tr (Negative) 01/19/17 Unknown Urine WBC (Auto) 5.0 /HPF (0.0-6.0) 01/19/17 Unknown Urine RBC (Auto) 2.0 /HPF (0.0-6.0) 01/19/17 Unknown U Epithel Cells (Auto) < 1.0 /HPF (0-13.0) 01/19/17 Unknown RPR Nonreactive (Nonreactive) 01/21/17 14:53
[2017-01-25] MEDS: NACL 0.9% 1000 ML 1,000 ML IV SCH ×3 (05:54→22:12)
[2017-01-25 06:25] LABS: Hematocrit 27.9 % (35.5-45.6); Hemoglobin 9.2 gm/dl (11.8-15.2); Mean Corpuscular HGB Conc 33 % (32-34); Mean Corpuscular Hemoglobin 28 pg (28-32); Mean Corpuscular Volume 87 fl (84-94); Platelet Count 200 K/mm3 (140-440); Red Blood Count 3.23 M/mm3 (3.65-5.03); Red Cell Distribution Width 20.6 % (13.2-15.2); White Blood Count 7.4 K/mm3 (4.5-11.0)
[2017-01-25 06:34] LABS: Anion Gap 16 mmol/L; BUN/Creatinine Ratio 24; Blood Urea Nitrogen 19 mg/dL (9-20); Calcium 8.3 mg/dL (8.4-10.2); Carbon Dioxide 23 mmol/L (22-30); Chloride 108.4 mmol/L (98-107); Glucose 106 mg/dL (75-100); Potassium 3.7 mmol/L (3.6-5.0); Sodium 144 mmol/L (137-145)
[2017-01-25] MEDS: LOVENOX SUB-Q SCH (10:47)
[2017-01-25] MEDS: PEPCID PO SCH ×2 (10:47→22:13)
[2017-01-25] MEDS: MEPRON PO SCH (10:47)
[2017-01-25] MEDS: VORICONAZOLE PO SCH ×2 (10:57→22:13)
--- NOTE | 2017-01-25 13:13 | Progress Note ---
Assessment and Plan Assessment and plan: Patient is 31 years old male recently diagnosed with HIV/AIDS. 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 Patient stated that since yesterday he started having a fever and generalized rash. Patient denied any cough or chest pain. He denied nausea or vomiting. No urinary symptoms. Patient denied any new medication. He stated that he is not on any antiviral medication yet. Denied any headache, confusion numbness or tingling sensation. No bowel or bladder incontinence Extensive papular rash affecting entire body, palms, soles, mouth ? SJS due to fluconazole. 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 Etiology most likely extensive allergic rash. 2) Extensive papular rash affecting entire body, palms, soles, mouth: ? SJS due to fluconazole. 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 VDRL negative. Cryptococcus CSF antigen was positive at 1:2048. -Blood cx positive Crypto -Repeat LP -opening pressure normal -S/P ampho+5FC for 2 weeks then fluconazole 400 mg po since 12/25 until 01/21. Stopped due to allergic reaction. 4) HIV infection / AIDS -SR=[id number] -CD4=64 -HIV-Genotype - pansensitive Plan: -continue IV steroids -stop contact / droplet isolation for now -start azithromycin 1200 mg po qweek and mepron for MAC and PJP prophylaxis today -will start voriconazole 200 mg po bid x 1 day then 100 mg po bid TOMORROW -please monitor for 1-2 days after voriconazole starts -educate patient to watch for worsening rash I will be off this weekend, but available over the phone. Thank you Dr Ann for your consultation, will follow up with you."\\ 01/24/17 Start voriconazole today History Interval history: Patient was seen and examined. Follow-up on current diagnosis/rash which is still present. Overnight uneventful. Patient denies any chest pain, shortness breath, nausea/vomiting or severe headaches. Imaging, nursing note, chart, labs and old chart reviewed. Discussed with patient. Hospitalist Physical - Physical exam Narrative exam: GEN: Ill appearing, NAD, AWAKE, ALERT, ORIENTATED 3 HEENT: NCAT, EOMI, PERRL, OP with jairo viv type of appearance on lips NECK: supple, no adenopathy, no thyromegaly, no JVD CVS/HEART: RRR, NORMAL S1S2, NO JVD, pulses present bilaterally CHEST/LUNGS: CTA B, Symmetrical chest expansion, good air entry bilaterally GI/Abdomen: soft, NTND, good bowel sounds, no guarding or rebound /Bladder: no suprapubic tenderness, no CVA or paraspinal tenderness EXT/Skin: no c/c/e, obvious rash, erythematous maculopapular diffuse rash without vesicles and pustules head to toe. MSK: FROM x 4 Neuro: CN 2-12 grossly intact, no new focal deficits Psych: calm - Constitutional Vitals: Temp Pulse Resp BP Pulse Ox 97.5 F L 91 H 18 125/97 98 01/25/17 08:32 01/25/17 08:32 01/25/17 08:32 01/25/17 08:32 01/25/17 08:32 General appearance: Present: no acute distress Results - Labs CBC & Chem 7: 01/25/17 05:53 01/25/17 05:53 Labs: Laboratory Last Values WBC 7.4 K/mm3 (4.5-11.0) 01/25/17 05:53 RBC 3.23 M/mm3 (3.65-5.03) L 01/25/17 05:53 Hgb 9.2 gm/dl (11.8-15.2) L 01/25/17 05:53 Hct 27.9 % (35.5-45.6) L 01/25/17 05:53 MCV 87 fl (84-94) 01/25/17 05:53 MCH 28 pg (28-32) 01/25/17 05:53 MCHC 33 % (32-34) 01/25/17 05:53 RDW 20.6 % (13.2-15.2) H 01/25/17 05:53 Plt Count 200 K/mm3 (140-440) 01/25/17 05:53 Lymph % (Auto) 24.4 % (13.4-35.0) 01/19/17 16:22 [place] % (Auto) 3.5 % (0.0-7.3) 01/19/17 16:22 Eos % (Auto) 2.3 % (0.0-4.3) 01/19/17 16:22 Baso % (Auto) 0.3 % (0.0-1.8) 01/19/17 16:22 Lymph # 1.3 K/mm3 (1.2-5.4) 01/19/17 16:22 [place] # 0.2 K/mm3 (0.0-0.8) 01/19/17 16:22 Eos # 0.1 K/mm3 (0.0-0.4) 01/19/17 16:22 Baso # 0.0 K/mm3 (0.0-0.1) 01/19/17 16:22 Seg Neutrophils % 69.5 % (40.0-70.0) 01/19/17 16:22 Seg Neutrophils # 3.8 K/mm3 (1.8-7.7) 01/19/17 16:22 PT 13.8 Sec. (12.2-14.9) 01/19/17 16:22 INR 1.01 (0.87-1.13) 01/19/17 16:22 VBG pH 7.536 (7.320-7.420) H 01/19/17 16:22 Sodium 144 mmol/L (137-145) 01/25/17 05:53 Potassium 3.7 mmol/L (3.6-5.0) 01/25/17 05:53 Chloride 108.4 mmol/L (98-107) H 01/25/17 05:53 Carbon Dioxide 23 mmol/L (22-30) 01/25/17 05:53 Anion Gap 16 mmol/L 01/25/17 05:53 BUN 19 mg/dL (9-20) 01/25/17 05:53 Creatinine 0.8 mg/dL (0.8-1.5) 01/25/17 05:53 Estimated GFR > 60 ml/min 01/25/17 05:53 BUN/Creatinine Ratio 24 % 01/25/17 05:53 Glucose 106 mg/dL (75-100) H 01/25/17 05:53 Lactic Acid 1.40 mmol/L (0.7-2.0) 01/19/17 18:28 Calcium 8.3 mg/dL (8.4-10.2) L 01/25/17 05:53 Total Bilirubin 0.50 mg/dL (0.1-1.2) 01/19/17 16:22 AST 26 units/L (5-40) 01/19/17 16:22 ALT 24 units/L (7-56) 01/19/17 16:22 Alkaline Phosphatase 122 units/L (35-129) 01/19/17 16:22 C-Reactive Protein 2.10 mg/dL (0.00-1.30) H 01/23/17 Unknown Total Protein 7.1 g/dL (6.3-8.2) 01/19/17 16:22 Albumin 3.5 g/dL (3.9-5) L 01/19/17 16:22 Albumin/Globulin Ratio 1.0 % 01/19/17 16:22 Urine Color Yellow (Yellow) 01/19/17 Unknown Urine Turbidity Clear (Clear) 01/19/17 Unknown Urine pH 6.0 (5.0-7.0) 01/19/17 Unknown Ur Specific [place] 1.017 (1.003-1.030) 01/19/17 Unknown Urine Protein <15 mg/dl mg/dL (Negative) 01/19/17 Unknown Urine Glucose (UA) Neg mg/dL (Negative) 01/19/17 Unknown Urine Ketones Neg mg/dL (Negative) 01/19/17 Unknown Urine Blood Neg (Negative) 01/19/17 Unknown Urine Nitrite Neg (Negative) 01/19/17 Unknown Urine Bilirubin Neg (Negative) 01/19/17 Unknown Urine Urobilinogen 2.0 mg/dL (<2.0) 01/19/17 Unknown Ur Leukocyte Esterase Tr (Negative) 01/19/17 Unknown Urine WBC (Auto) 5.0 /HPF (0.0-6.0) 01/19/17 Unknown Urine RBC (Auto) 2.0 /HPF (0.0-6.0) 01/19/17 Unknown U Epithel Cells (Auto) < 1.0 /HPF (0-13.0) 01/19/17 Unknown RPR Nonreactive (Nonreactive) 01/21/17 14:53
[2017-01-26] MEDS: NACL 0.9% 1000 ML 1,000 ML IV SCH (05:52)
[2017-01-26] MEDS: MEPRON PO SCH (09:44)
[2017-01-26] MEDS: LOVENOX SUB-Q SCH (09:44)
[2017-01-26 09:45] VITALS: BP 123/77
[2017-01-26] MEDS: VORICONAZOLE PO SCH (09:45)
[2017-01-26] MEDS: PEPCID PO SCH (09:45)
--- NOTE | 2017-01-26 10:03 | Progress Note ---
Assessment and Plan Assessment: 1) SIRS: resolved. Etiology most likely extensive allergic rash. 2) Extensive papular rash affecting entire body, palms, soles, mouth: ? SJS due to fluconazole. 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 VDRL negative. Cryptococcus CSF antigen was positive at 1:2048. -Blood cx positive Crypto -Repeat LP -opening pressure normal -S/P ampho+5FC for 2 weeks then fluconazole 400 mg po since 12/25 until 01/21. Stopped due to allergic reaction. 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 Yudelka Gillis MD Infectious Diseases Specialist [facility] ([facility] M [phone] O [phone] Subjective Date of service: 01/26/17 Principal diagnosis: rash Interval history: Feels better, no skin pain. NO fever. Tolerating well voriconazole no reactions. Microbiology: Blood cultures: 01/19 ngtd Urine cultures: 01/19 neg Influenza: neg Stool: neg Current Antimicrobials: voriconazole 01/24 azithromycin q week mepron Previous Antimicrobials: cefepime fluconazole Objective - Exam Narrative Exam: General appearance: Alert in NAD, conversant Eyes: anicteric sclerae, moist conjunctivae; no lid-lag; PERRLA HENT: Atraumatic; oropharynx +oral mucosa with ulcers Neck: Trachea midline; supple, no thyromegaly or lymphadenopathy Lungs: CTA CV: RRR, no murmurs Abdomen: Soft, non-tender; no masses or hepatosplenomegaly Extremities: No peripheral edema or extremity lymphadenopathy Skin: +extensive maked nodular erythematous rash over entire body, face, palms, soles, mouth - resolving Psych: Appropriate affect, alert and oriented to person, place and time. Neuro: alert and oriented x 3. Moving all extermities Lines: No CVL / PICC - Constitutional Vitals: Vital Signs Temp Pulse Resp BP Pulse Ox 97.9 F 87 18 123/77 100 01/26/17 09:30 01/26/17 09:30 01/26/17 09:30 01/26/17 09:30 01/26/17 09:30 Temperature -Last 24 Hours Temperature 97.9 F Temperature 98.7 F Temperature 97.8 F Temperature 98.5 F - Labs CBC & Chem 7: 01/25/17 05:53 01/25/17 05:53
--- NOTE | 2017-01-26 12:02 | Discharge Summary ---
Providers - Providers Date of Admission: 01/19/17 23:58 Date of discharge: 01/26/17 Attending physician: FAHAD ESCALANTE 01/20/17 12:09 Physical Therapy Evaluation and Treat [CONS] Routine Comment: Reason For Exam: debility 01/20/17 12:10 Consult to Physician [CONS] Routine Consulting Provider: IMELDA GAVIN Reason For Exam: aids, rash Place consult to:: DR. AVENDANO Notified:: DR. AVENDANO Phone number called:: [phone] Was contact made?: Yes If yes, spoke with:: DR. AVENDANO Time called:: 13:06 Comment:: ARMANDO VILLAR 01/21/17 14:30 Consult to Physician [CONS] Routine Consulting Provider: DENISHA CHARLTON Reason For Exam: Need skin biopsy of rash Place consult to:: dr. charlton Notified:: office Phone number called:: Was contact made?: Yes If yes, spoke with:: carlos Teague called:: 16:02 01/26/17 10:08 Consult to Case Management [CONS] Stat Services Needed at Discharge: Other Notified:: splunk consultant Additional Physician Instructions: -continue azithromycin 1200 mg po qweek and mepron 1500 mg q day for MAC and PJP prophylaxis today - give at least 1 month Rx -will start voriconazole 100 mg po bid for cryptococcal meningitis in view of severe allergy to flucoanzole - give at least 1 month Rx -apt with Dr Ivone SALAS -educate patient to watch for worsening rash -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 Patient stated that since yesterday he started having a fever and generalized rash. Patient denied any cough or chest pain. He denied nausea or vomiting. No urinary symptoms. Patient denied any new medication. He stated that he is not on any antiviral medication yet. Denied any headache, confusion numbness or tingling sensation. No bowel or bladder incontinence Extensive papular rash affecting entire body, palms, soles, mouth ? SJS due to fluconazole. 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 Etiology most likely extensive allergic rash. 2) Extensive papular rash affecting entire body, palms, soles, mouth: ? SJS due to fluconazole. 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 VDRL negative. Cryptococcus CSF antigen was positive at 1:2048. -Blood cx positive Crypto -Repeat LP -opening pressure normal -S/P ampho+5FC for 2 weeks then fluconazole 400 mg po since 12/25 until 01/21. Stopped due to allergic reaction. 4) HIV infection / AIDS -PA=[id number] -CD4=64 -HIV-Genotype - pansensitive Plan: -continue IV steroids -stop contact / droplet isolation for now -start azithromycin 1200 mg po qweek and mepron for MAC and PJP prophylaxis today -will start voriconazole 200 mg po bid x 1 day then 100 mg po bid TOMORROW -please monitor for 1-2 days after voriconazole starts -educate patient to watch for worsening rash I will be off this weekend, but available over the phone. Thank you Dr Escalante for your consultation, will follow up with you."\\ 01/24/17 Started on voriconazole Disposition: DC-50 TO HOSPICE (HOME) Time spent for discharge: 36 min Core Measure Documentation - Palliative Care Palliative Care/ Comfort Measures: Hospice Care - Core Measures Any of the following diagnoses?: none - VTE Discharge Requirements Deep Vein Thrombosis/Pulmonary Embolism Present on Admission: No Has pt received <5 days of overlap therapy or INR<2.0: No Anticoagulant overlap therapy prescribed at discharge: No Contraindication No Overlap Therapy order at DC: Not Indicated Exam - Physical Exam Narrative exam: GEN: Ill appearing, NAD, AWAKE, ALERT, ORIENTATED 3 HEENT: NCAT, EOMI, PERRL, OP with jairo zana type of appearance on lips NECK: supple, no adenopathy, no thyromegaly, no JVD CVS/HEART: RRR, NORMAL S1S2, NO JVD, pulses present bilaterally CHEST/LUNGS: CTA B, Symmetrical chest expansion, good air entry bilaterally GI/Abdomen: soft, NTND, good bowel sounds, no guarding or rebound /Bladder: no suprapubic tenderness, no CVA or paraspinal tenderness EXT/Skin: no c/c/e, obvious rash, erythematous maculopapular diffuse rash without vesicles and pustules head to toe. MSK: FROM x 4 Neuro: CN 2-12 grossly intact, no new focal deficits Psych: calm - Constitutional Vitals: Temp Pulse Resp BP Pulse Ox 97.9 F 87 18 123/77 100 01/26/17 09:30 01/26/17 09:30 01/26/17 09:30 01/26/17 09:30 01/26/17 09:30 Plan Activity: other (no strenous activity until cleared by pcp) Diet: regular Follow up with: PRIMARY CARE,MD [Primary Care Provider] - 3-5 Days Prescriptions: Atovaquone [Mepron] 1,500 mg PO QDAY #1 mo Azithromycin [Zithromax TAB] 1,200 mg PO QWEEK #1 mo diphenhydrAMINE [Benadryl CAP] 25 mg PO Q6H PRN #15 capsule PRN Reason: Itching Famotidine [Pepcid] 20 mg PO BID #60 tablet methylPREDNISolone [Medrol Dose Efraín] 1 dose PO DAILY #1 pack OLANzapine [Zyprexa] 20 mg PO QDAY #30 tablet Promethazine [Phenergan TAB] 25 mg PO Q6HR PRN #30 tab PRN Reason: Nausea or vomiting Voriconazole [Vfend] 100 mg PO Q12H #30 day
[2017-01-26] MEDS ORDERED: TRIPLE ANTIBIOTIC TP ONE (13:21)
[2017-01-30] MEDS ORDERED: ZITHROMAX PO SCH (10:00)
== END 2017-01-26 14:45 | disposition hospice, home (50) | DRG 595 ==
LOC: ED 13:58 → 3A 23:58
PROVIDERS: ADMIT Internal Medicine; ATTEND Internal Medicine
PROC: 0HBEXZX Excision of Left Lower Arm Skin, External Approach, Diagnostic (ICD-10-PCS; principal; 2017-01-21)
DX: L51.3 Stevens-Johnson syndrome-toxic epidermal necrolysis overlap syndrome (principal); B20 Human immunodeficiency virus [HIV] disease; F32.9 Major depressive disorder, single episode, unspecified; R65.10 Systemic inflammatory response syndrome (SIRS) of non-infectious origin without acute organ dysfunction; Z88.8 Allergy status to other drugs, medicaments and biological substances; E86.0 Dehydration; T37.8X5A Adverse effect of other specified systemic anti-infectives and antiparasitics, initial encounter; Y92.89 Other specified places as the place of occurrence of the external cause
CPT/HCPCS: 36415; 71010; 80048; 80053; 81001; 82140; 82805; 85007; 85025; 85027; 85610; 86140; 86592; 87040; 87045; 87086; 87400; 87493; 88305; 93005; 93010; 96361; 96365; 96375; A6250; J0692; J1650; J2270; J2405; J2543; J2920; J2930; J3370; J7030; J7040; J7050

== ENCOUNTER 2017-03-27 05:38 | Emergency (ER) | payer MEDICAID ==
[2017-03-27 06:29] VITALS: BP 194/109
[2017-03-27 07:35] LABS: Basophils % (Auto) 0.3 % (0.0-1.8); Eosinophils # (Auto) 0.1 K/mm3 (0.0-0.4); Eosinophils % (Auto) 1.7 % (0.0-4.3); Hematocrit 38.1 % (30.3-42.9); Hemoglobin 13.2 gm/dl (10.1-14.3); Lymphocytes # (Auto) 1.5 K/mm3 (1.2-5.4); Lymphocytes % (Auto) 34.7 % (13.4-35.0); Mean Corpuscular HGB Conc 35 % (30-34); Mean Corpuscular Hemoglobin 30 pg (28-32); Mean Corpuscular Volume 86 fl (79-97); Monocytes # (Auto) 0.2 K/mm3 (0.0-0.8); Monocytes % (Auto) 5.6 % (0.0-7.3); Platelet Count 241 K/mm3 (140-440); Red Blood Count 4.44 M/mm3 (3.65-5.03); Red Cell Distribution Width 14.7 % (13.2-15.2)
[2017-03-27 07:43] LABS: Bilirubin,Urine NEG (Negative); Blood,Urine NEG (Negative); Color,Urine Yellow (Yellow); Mucus,Urine FEW /HPF; Nitrite,Urine NEG (Negative); Protein,Urine <15 mg/dL mg/dL (Negative); WBC,Urine < 1.0 /HPF (0.0-6.0)
[2017-03-27 07:46] LABS: Amphetamine Screen,Urine PRESUMPTIVE NEGATIVE; Benzodiazepines Screen,Urine PRESUMPTIVE NEGATIVE; Cannabinoid Screen,Urine PRESUMPTIVE NEGATIVE; Cocaine Screen,Urine PRESUMPTIVE NEGATIVE; Methadone Screen,Urine PRESUMPTIVE NEGATIVE; Opiate Screen,Urine PRESUMPTIVE NEGATIVE
[2017-03-27 07:49] LABS: BUN/Creatinine Ratio 19; Blood Urea Nitrogen 19 mg/dL (7-17); Calcium 9.4 mg/dL (8.4-10.2); Hemolysis Index 8
== END 2017-03-27 09:34 | disposition left against medical advice (07) ==
LOC: ED 05:38
DX: Z53.21 Procedure and treatment not carried out due to patient leaving prior to being seen by health care provider (principal)
CPT/HCPCS: 36415; 80048; 80307; 81001; 85025; G0480; 80320

== ENCOUNTER 2017-04-12 02:37 | Emergency (ER) | payer MEDICAID ==
[2017-04-12] MEDS ORDERED: CATAPRES PO ONE (04:14)
--- NOTE | 2017-04-12 05:43 | Cat Scan Report ---
FINAL REPORT PROCEDURE: CT HEAD/BRAIN WO CON TECHNIQUE: Computerized tomography of the head was performed without contrast material. HISTORY: Fell and hit the back of head COMPARISON: No prior studies are available for comparison. FINDINGS: Skull and scalp: Normal. Paranasal sinuses: Normal. Ventricles and subarachnoid spaces: Normal. Cerebrum: No evidence of hemorrhage, acute infarction or mass . Cerebellum and brainstem: No evidence of hemorrhage, acute infarction or mass. Vasculature: Normal. Comments: None. IMPRESSION: Normal Examination
[2017-04-12] MEDS ORDERED: ZOFRAN IM ONE (07:38)
[2017-04-12] MEDS ORDERED: NACL 0.9% 1000 ML 1,000 ML IV ONE (07:38)
[2017-04-12] MEDS ORDERED: BENADRYL IV ONE (07:38)
--- NOTE | 2017-04-12 07:40 | Emergency Department Report ---
ED Headache HPI - General Chief Complaint: Headache Stated Complaint: HEADACHE Time Seen by Provider: 04/12/17 07:11 - History of Present Illness Initial Comments: This is a 32-year-old male nontoxic, well nourished in appearance, no acute signs of distress presents to the ED with c/o of headache and right eye pain. Patient stated he was at [place] and slipped and fell and hit his back and head 3 days ago. Patient denies any loss of consciousness but stated that he has been worse headache he describes as beginning diffusely level 10 out of 10. Patient describes intermittent right eye pain but currently in the ED denies any eye pain or drainage. Patient denies any visual changes, blurry vision. Patient denies any chest pain, shortness of breath, stiff neck, fever, chills, nausea, vomiting, numbness, tingling, bowel pain, back pain. Patient states history of HIV/AIDS hypertension, and depression. States allergies to fluconazole. Patient stated he is not sure of his CD4 count but follows Dr. Ascencio from infection disease. Timing/Duration: other (3 days ago) Quality: mild Head Injury Location: other (diffuse) Recent Head Trauma: head trauma > 24 hrs ago Associated Symptoms: denies symptoms. denies: confusion, fatigue, facial pain, fever/chills, flushing, loss of consciousness, nausea/vomiting, nasal congestion , nasal drainage, numbness in legs/feet, rash, seizures, sinus infection, stiff neck, vision changes, weakness Allergies/Adverse Reactions: Allergies fluconazole Allergy (Severe, Verified 01/22/17 11:47) Rash Home Medications: Ambulatory Orders Atovaquone [Mepron] 1,500 mg PO QDAY #1 mo 01/26/17 Azithromycin [Zithromax TAB] 1,200 mg PO QWEEK #1 mo 01/26/17 Famotidine [Pepcid] 20 mg PO BID #60 tablet 01/26/17 OLANzapine [Zyprexa] 20 mg PO QDAY #30 tablet 01/26/17 Promethazine [Phenergan TAB] 25 mg PO Q6HR PRN #30 tab 01/26/17 Voriconazole [Vfend] 100 mg PO Q12H #30 day 01/26/17 diphenhydrAMINE [Benadryl CAP] 25 mg PO Q6H PRN #15 capsule 01/26/17 methylPREDNISolone [Medrol Dose Efraín] 1 dose PO DAILY #1 pack 01/26/17 Butalb/Acetamin/Caff 50-325-40 [Fioricet] 1 tab PO Q6HR PRN #30 tab 04/12/17 ED Review of Systems ROS: Stated complaint: HEADACHE Other details as noted in HPI Constitutional: denies: chills, fever Eyes: denies: eye pain, eye discharge, vision change ENT: denies: ear pain, throat pain Respiratory: denies: cough, shortness of breath, wheezing Cardiovascular: denies: chest pain, palpitations Endocrine: no symptoms reported Gastrointestinal: denies: abdominal pain, nausea, diarrhea Genitourinary: denies: urgency, dysuria, discharge Musculoskeletal: denies: back pain, joint swelling, arthralgia Skin: denies: rash, lesions Neurological: headache. 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 - Social History Smoking Status: Never Smoker - Medications Home Medications: Home Medications Medication Instructions Recorded Confirmed Last Taken Type Atovaquone [Mepron] 1,500 mg PO QDAY #1 mo 01/26/17 Unknown Rx Azithromycin [Zithromax TAB] 1,200 mg PO QWEEK #1 mo 01/26/17 Unknown Rx Famotidine [Pepcid] 20 mg PO BID #60 tablet 01/26/17 Unknown Rx OLANzapine [Zyprexa] 20 mg PO QDAY #30 tablet 01/26/17 Unknown Rx Promethazine [Phenergan TAB] 25 mg PO Q6HR PRN #30 tab 01/26/17 Unknown Rx Voriconazole [Vfend] 100 mg PO Q12H #30 day 01/26/17 Unknown Rx diphenhydrAMINE [Benadryl CAP] 25 mg PO Q6H PRN #15 capsule 01/26/17 Unknown Rx methylPREDNISolone [Medrol Dose 1 dose PO DAILY #1 pack 01/26/17 Unknown Rx Efraín] Butalb/Acetamin/Caff 50-325-40 1 tab PO Q6HR PRN #30 tab 04/12/17 Unknown Rx [Fioricet] ED Physical Exam - General Limitations: No Limitations General appearance: alert, in no apparent distress - Head Head exam: Present: atraumatic, normocephalic - Eye Eye exam: Present: normal appearance, PERRL, EOMI. Absent: scleral icterus, conjunctival injection, nystagmus, periorbital swelling, periorbital tenderness Pupils: Present: normal accommodation - ENT ENT exam: Present: normal exam, normal orophraynx, mucous membranes moist, TM's normal bilaterally, normal external ear exam - Neck Neck exam: Present: normal inspection, full ROM. Absent: tenderness, meningismus, lymphadenopathy, thyromegaly - Respiratory Respiratory exam: Present: normal lung sounds bilaterally. Absent: respiratory distress, wheezes, rales, rhonchi, stridor, chest wall tenderness, accessory muscle use, decreased breath sounds, prolonged expiratory - Cardiovascular Cardiovascular Exam: Present: regular rate, normal rhythm, normal heart sounds. Absent: bradycardia, tachycardia, irregular rhythm, systolic murmur, diastolic murmur, rubs, gallop - GI/Abdominal GI/Abdominal exam: Present: soft, normal bowel sounds. Absent: distended, tenderness, guarding, rebound, rigid, diminished bowel sounds - Rectal Rectal exam: Present: deferred - Extremities Exam Extremities exam: Present: normal inspection, full ROM, normal capillary refill. Absent: tenderness, pedal edema, joint swelling, calf tenderness - Back Exam Back exam: Present: normal inspection, full ROM. Absent: tenderness, CVA tenderness (R), CVA tenderness (L), muscle spasm, paraspinal tenderness, vertebral tenderness, rash noted - Neurological Exam Neurological exam: Present: alert, oriented X3, CN II-XII intact, normal gait, reflexes normal - Expanded Neurological Exam Expanded Patient oriented to: Present: person, place, time Cranial nerves: EOM's Intact: Normal, Gag Reflex: Normal, Tongue Deviation: Normal, Nystagmus: Normal, Facial Sensation: Normal, Facial Palsy with Forehead Movement: Normal, Facial Palsy without Forehead Movement: Normal Cerebellar function: Finger to Nose: Normal, Heel to Colbert: Normal, Romberg: Normal Upper motor neuron: Alfie Neglect: Normal, Pronator Drift: Normal, Babinski Sign : Normal, Sensory Extinction: Normal Sensory exam: Upper Extremity Light Touch: Normal, Upper Extremity Pin Prick: Normal, Upper Extremity Temperature: Normal, UE 2 Point Discrimination: Normal, Lower Extremity Light Touch: Normal, Lower Extremity Pin Prick: Normal, Lower Extremity Temperature: Normal, LE 2 Point Discrimination: Normal Motor strength exam: RUE: 5, LUE: 5, RLE: 5, LLE: 5 DTR: bicep (R): 2+, bicep (L): 2+, tricep (R): 2+, tricep (L): 2+, knee (R): 2+ , knee (L): 2+, ankle (R): 2+, ankle (L): 2+ Best Eye Response (Molly): (4) open spontaneously Best Motor Response (Devine): (6) obeys commands Best Verbal Response (Devine): (5) oriented Molly Total: 15 - Psychiatric Psychiatric exam: Present: normal affect, normal mood - Skin Skin exam: Present: warm, dry, intact, normal color. Absent: rash - Other Other exam information: Under [place] lamp, I used fluorescein and tetracaine to examine cornea for corneal abrasion or foreign body, negative for coronary abrasion or foreign body noted upon exam. Hayden-Pen right eye 12. ED Course Vital Signs 04/12/17 04/12/17 04/12/17 04:01 04:31 06:14 Temperature 98.6 F Pulse Rate 99 H 88 78 Respiratory 18 18 Rate Blood Pressure 176/118 172/121 Blood Pressure 145/98 [Right] O2 Sat by Pulse 98 99 Oximetry 04/12/17 04/12/17 07:57 08:27 Temperature Pulse Rate Respiratory 16 16 Rate Blood Pressure Blood Pressure [Right] O2 Sat by Pulse Oximetry - Reevaluation(s) Reevaluation #1: 04/12/17 07:46 Patient is speaking in full sentences with no signs of distress noted. ED Medical Decision Making - Lab Data Result diagrams: 04/12/17 08:07 04/12/17 08:07 - Medical Decision Making This is a 32-year-old male that presents with headache and hypokalemia. Patient is stable and was examined by me. Labs obtained. CT of head/brain without contrast has been obtained and dictated by radiologist with normal exam. EKG no acute changes no ST abnormalities. Nonstemi. Dr. Gibson consulted and agrees to ed plan of care and discharge instructions with f/u. Patient is notified of the CT results with no questionable by the patient. Patient received a liter of normal saline, Benadryl, Zofran, and Toradol IV stated symptoms of headache has subsided. Patient also received 40 meq K+ PO. Hayden- Pen of right eye is 12. Under [place] lamp, I used fluorescein and tetracaine to examine cornea for corneal abrasion or foreign body, negative for coronary abrasion or foreign body noted upon exam. Vital signs are stable patient is nonfebrile and nontacky. No meningeal symptoms or stiff neck. Patient is discharged with Fioricet. Patient was instructed not to operate any machinery after discharge due to drowsiness of Benadryl which he stated he will have someone pick him up and drive him back. He was instructed to Follow-up with a primary care doctor in 3-5 days or if symptoms worsen and continue return to emergency room as soon as possible. At time of discharge, the patient does not seem toxic or ill in appearance. No acute signs of distress noted. Patient agrees to discharge treatment plan of care. No further questions noted by the patient. Critical care attestation.: If time is entered above; I have spent that time in minutes in the direct care of this critically ill patient, excluding procedure time. ED Disposition Clinical Impression: Hypokalemia Headache Qualifiers: Headache type: unspecified Headache chronicity pattern: acute headache Intractability: not intractable Qualified Code(s): R51 - Headache Disposition: DC-01 TO HOME OR SELFCARE Is pt being admited?: No Does the pt Need Aspirin: No Condition: Stable Instructions: Butalbital/Aspirin/Caffeine (By mouth), Hypokalemia (ED), Acute Headache (ED) Additional Instructions: Follow-up with a primary care doctor in 3-5 days or if symptoms worsen and continue return to emergency room as soon as possible. Eat high rice potassium foods such as bananas. Prescriptions: Butalb/Acetamin/Caff 50-325-40 [Fioricet] 1 tab PO Q6HR PRN #30 tab PRN Reason: Headache Referrals: PRIMARY CARE, [Primary Care Provider] - 3-5 Days ELMA CORRAL MD [Staff Physician] - 3-5 Days [facility] [Outside] - 3-5 Days [facility] [Outside] - 3-5 Days Forms: Work/School Release Form(ED)
[2017-04-12] MEDS ORDERED: TORADOL IV ONE (07:42)
[2017-04-12] MEDS ORDERED: ZOFRAN IV ONE (07:58)
[2017-04-12 08:29] LABS: Hematocrit 36.2 % (30.3-42.9); Hemoglobin 12.3 gm/dl (10.1-14.3); Mean Corpuscular HGB Conc 34 % (30-34); Mean Corpuscular Hemoglobin 29 pg (28-32); Mean Corpuscular Volume 84 fl (79-97); Platelet Count 193 K/mm3 (140-440); Red Blood Count 4.31 M/mm3 (3.65-5.03); Red Cell Distribution Width 14.3 % (13.2-15.2)
[2017-04-12 08:30] LABS: BUN/Creatinine Ratio 9; Blood Urea Nitrogen 7 mg/dL (7-17); Calcium 8.5 mg/dL (8.4-10.2); Hemolysis Index 23
[2017-04-12] MEDS ORDERED: K-DUR PO ONE (08:52)
[2017-04-12 09:01] LABS: Bacteria,Urine 1+ /HPF (Negative); Bilirubin,Urine NEG (Negative); Blood,Urine NEG (Negative); Color,Urine Amber (Yellow); Mucus,Urine 3+ /HPF
[2017-04-12 10:12] VITALS: BP 134/90
[2017-04-12 10:13] LABS: Basophils % (Manual) 0 % (0.0-1.8); Eosinophils % (Manual) 0 % (0.0-4.3); Total Cells Counted 100
[2017-04-12 10:14] LABS: Anisocytosis 1+; Ovalocytes Few; Platelet Estimate Consistent w Auto; Smudge Cells Few; Tear Drop Cells Rare
== END 2017-04-12 10:10 | disposition home or self-care (01) ==
LOC: ED 02:37
DX: E87.6 Hypokalemia (principal); R51 Headache; I10 Essential (primary) hypertension; F32.9 Major depressive disorder, single episode, unspecified; Z21 Asymptomatic human immunodeficiency virus [HIV] infection status
CPT/HCPCS: 36415; 70450; 80048; 81001; 85007; 85025; 93005; 93010; 96361; 96374; 96375; 99284; J1200; J1885; J2405; J7030